=== PATIENT | male | born 1955 | race Caucasian/White ===

== ENCOUNTER 2020-08-14 10:21 | Outpatient (REF) | payer MEDICARE, MEDICAID, SELFPAY ==
--- NOTE | 2020-08-14 | US_ITS ---
EXAMINATION: US RETROPERITONEAL LIMITED (RENAL ONLY) CLINICAL INFORMATION: Renal cyst. COMPARISON: Renal ultrasound 06/18/2020 and 02/28/2018. MRA abdomen 07/02/2016. TECHNIQUE: Real-time imaging of the kidneys. FINDINGS: RIGHT KIDNEY: 11.5 x 5.6 x 5.7 cm (SAG x AP x TRV). The kidney is normal in size, contour, and echogenicity. Renal cortical thickness is normal. No renal calculi or hydronephrosis. Upper pole cyst measures 1.7 x 1.3 x 1.9 cm. This appears simple. This is similar to prior. LEFT KIDNEY: 12.4 x 4.7 x 5.1 cm (SAG x AP x TRV). The kidney is normal in size, contour, and echogenicity. Renal cortical thickness is normal. No hydronephrosis. Multiple cysts are again identified. These have a simple appearance and are similar in size to the prior. The largest is seen at the midpole measuring 2.7 x 1.8 x 2.1 cm. There are also multiple calcifications again noted. Midpole calcification is more prominent than on previous, measuring 1.2 x 0.3 x 0.7 cm. There is also a 0.9 x 0.4 x 0.4 cm calcification. These are likely similar to prior allowing for differences in measurement technique. The prior study showed an upper pole calculus which is not currently seen. US/US renal BI IMPRESSION: Bilateral renal cysts are without significant change from prior. Left renal calcifications are noted. Upper pole calcification seen on the prior study is not currently seen. Remaining mid/lower pole calcifications are similar.
== END 2020-08-14 10:22 | disposition home or self-care (01) ==
LOC: HO.US 10:21
PROVIDERS: PCP Internal Medicine; Visit Provider Urology
DX: N28.1 Cyst of kidney, acquired (principal)
CPT/HCPCS: 76775

== ENCOUNTER 2020-09-29 08:07 | Outpatient (REF) | payer MEDICARE, MEDICAID, SELFPAY ==
[2020-09-29 11:15] LABS: PSA,Total (Free>4and<10) 1.59 ng/mL (0.00-4.00)
== END 2020-09-29 08:08 | disposition home or self-care (01) ==
LOC: HO.10HDL 08:07
PROVIDERS: Visit Provider Urology
DX: N40.1 Benign prostatic hyperplasia with lower urinary tract symptoms (principal)
CPT/HCPCS: 84153

== ENCOUNTER → 2020-10-02 10:25 | Outpatient (BNVA) | payer MEDICARE, MEDICAID, SELFPAY | PROVIDERS: PCP Internal Medicine; Visit Provider Urology | DX: N40.1 Benign prostatic hyperplasia with lower urinary tract symptoms (principal); N28.1 Cyst of kidney, acquired; N20.0 Calculus of kidney | CPT/HCPCS: 99212 ==

== ENCOUNTER → 2020-12-11 14:33 | Outpatient (REF) | payer MEDICARE, MEDICAID, SELFPAY ==
--- NOTE | 2020-12-11 15:00 | CA_ITS ---
Transthoracic Echocardiogram Patient (Last, First, Middle): Tato Wilson, Gender: Male Date of : 1955 Age: 64 Procedure Date: 12/11/2020 Procedure Type: Transthoracic Echocardiogram Location: OP Height: 177.8 cm Weight: 85.28 kg BSA: 2.03 m2 Heart Rate: bpm BP: 120 / 80 mmHg Armature Repairer: EDA Chapman MD: Carlito Morales MD Order Entry Technician: Tulio Sheets MD Symptoms: I77.810 AAA Study Quality: Fair ECG Rhythm: Sinus Conclusions: - 1. Normal LV systolic function with grade 1 diastolic dysfunction 2. Normal cardiac valvular Doppler 3. Mildly dilated ascending aorta at 3.9 cm 4. Normal RV systolic pressure 5. No pericardial effusion Findings Left Ventricle Normal left ventricular size, thickness, and systolic function. The visually estimated ejection fraction is between 60-65%. Spectral Doppler is indicative of an impaired relaxation filling pattern. E/E prime ratio is <8, consistent with normal filling pressures. Evidence suggests grade I (mild) diastolic dysfunction. Right Ventricle Normal right ventricular cavity size and systolic function. Atria Both atria are normal in size. Interatrial shunt cannot be excluded. Aortic Valve Normal aortic valve structure and function. There is no aortic valve stenosis. There is no aortic valve regurgitation. Mitral Valve Normal mitral valve structure and function. There is trace mitral valve regurgitation. There is no mitral valve stenosis. Pulmonic Valve The pulmonic valve was not well visualized. Tricuspid Valve Likely normal tricuspid valve structure and function. There is trace tricuspid valve regurgitation. The right ventricular systolic pressure is normal. The right ventricular systolic pressure is 23 mmHg. Normal right atrial pressure. There is no evidence of pulmonary hypertension. Great Vessels The pulmonary artery was not well visualized. There is mild dilatation of the ascending aorta measuring 3.90 cm. Venous The inferior vena cava is normal in size and collapses greater than 50% with inspiration. Pericardium/Pleural There is no evidence of pericardial effusion. Prior Study Comparison No change compared to prior study dated: 12/11/2019. Measurements 2D Linear Measurements IVSd: 1.15 0.6-0.9/0.6-1.0 cm LVIDd: 3.56 3.9-5.3/4.2-5.9 cm LVIDd Index: 1.75 2.4-3.2/2.2-3.1 cm/m2 LVIDs: 2.59 2.0-3.6 cm LVPWd: 1.08 0.7-1.1 cm Ao Root: 3.90 2.1-3.5 cm LA Diam: 3.00 2.7-3.8/3.0-4.0 cm LAIDs Index: 1.48 1.5-2.3 cm/m2 LV Mass: 154.95 67-162/88-224 g LV Mass Index: 76.33 43-95/49-115 g/m2 LVOT Diam: 2.20 3.0+(-)1.3 cm Mitral Valve MV Pk E: 1.02 MV PK A: 1.25 MV Decel Time: 261.00 E/A: 0.80 E'Lateral: 7.25 E'Medial: 5.71 E/E' Med: 17.90 E/E' Lat: 14.10 PHT: 76.00 MVA PHT: 2.89 Decel Bent: 3.92 Aortic Valve AoV Pk Bud: 1.26 AoV Mn Bud: 0.85 AoV VTI: 0.23 AoV Pk Grad: 6.00 Aov Mn Grad: 3.00 SANIYA Cont.VTI: 3.44 LVOT LVOT Pk Bud: 1.14 LVOT Mn Bud: 0.65 LVOT VTI: 0.21 LVOT Pk Grad: 5.00 LVOT Mn Grad: 2.00 LVOT Diam: 2.20 LVOT Area: 3.80 Diastolic Function MV Pk E: 1.02 MV Pk A: 1.25 E/A: 0.80 E'Medial: 5.71 E/E' Med: 17.90 E' Laterial: 7.25 E/E' Lat: 14.10 Tricuspid Valve TR Pk Bud: 2.25 TR Pk Grad: 20.00 RA Press: 3.00 RVSP: 23.00 Great Vessels Aorta Ao Root-2D: 3.90 2.0-3.7 cm Ao Asc: 3.90 2.1-3.4 cm Ao Arch: 3.80 Updated in Other Vendor System with Status of Final Tulio Sheets MD electronically signed on 12/12/2020 1:05:40 PM with status of Final
== END ==
LOC: HO.CARD 14:33
PROVIDERS: Visit Provider Internal Medicine
DX: I77.810 Thoracic aortic ectasia (principal)
CPT/HCPCS: 93306

== ENCOUNTER → 2020-12-22 12:40 | Outpatient (BNVA) | payer MEDICARE, MEDICAID, SELFPAY | PROVIDERS: PCP Internal Medicine; Visit Provider Internal Medicine | DX: I10 Essential (primary) hypertension (principal); I77.810 Thoracic aortic ectasia | CPT/HCPCS: 93005; 99212 ==

== ENCOUNTER 2021-01-23 08:11 | Outpatient (REF) | payer MEDICARE, MEDICAID, SELFPAY | END 2021-01-23 08:12 | disposition home or self-care (01) | LOC: HO.10HDL 08:11 | PROVIDERS: Visit Provider Internal Medicine Nephrology | DX: Z13.89 Encounter for screening for other disorder (principal) ==

== ENCOUNTER 2021-02-02 08:27 | Outpatient (REF) | payer MEDICARE, MEDICAID, SELFPAY ==
[2021-02-02 10:23] LABS: MANUAL DIFF FLAG NO
[2021-02-02 10:29] LABS: Glucose Urine UA NEG (NEG); Leukocyte Esterase Urine NEG (NEG); Nitrite Urine NEG (NEG); PH 5.5 (5.0-8.0); Urine Blood NEG (NEG); Urine Ketones NEG (NEG); Urine Protein NEG (NEG-TRACE)
[2021-02-02 10:32] LABS: Basophils Absolute Auto 0.1 X10*3/uL (0.0-0.2); Basophils Percent Auto 0.5 % (0-2); Eosinophils Absolute Auto 0.5 X10*3/uL (0.0-0.4); Eosinophils Percent Auto 5.3 % (0-4); Hematocrit 43.1 % (42-52); Hemoglobin 14.5 g/dl (14.0-18.0); Imm Gran Abs Auto 0.03 X10*3/uL (0.00-0.03); Imm Gran Pct Auto 0.3 % (0.0-0.4); Lymphocytes Absolute Auto 2.5 X10*3/uL (1.2-4.9); Lymphocytes Percent Auto 24.1 % (20-40); Mean Corpuscular HGB Conc 33.6 g/dl (31.0-36.0); Mean Corpuscular Hemoglobin 30.1 pg (27.0-33.0); Mean Corpuscular Volume 89.4 fL (80-98); Mean Platelet Volume 11.5 fL (9.4-12.4); Monocytes Absolute Auto 0.5 X10*3/uL (0.1-1.2); Monocytes Percent Auto 5.3 % (2-11); Neutrophils Absolute Auto 6.5 X10*3/uL (2.0-8.3); Neutrophils Percent Auto 64.5 % (45-73); Platelet Count 219 X10*3/uL (160-400); Red Blood Count 4.82 X10*6/uL (4.60-5.80); Red Cell Distribution Width 13.1 % (11.0-16.0); White Blood Count 10.2 X10*3/uL (4.8-10.8)
[2021-02-02 10:50] LABS: Appearance Urine CLEAR; Color Urine YELLOW
[2021-02-02 10:54] LABS: Albumin Level 4.1 g/dL (3.5-5.0); Anion Gap 12 (12-20); Blood Urea Nitrogen 33 mg/dL (9-16); Calcium 9.8 mg/dL (8.4-10.2); Carbon Dioxide 25 mmol/L (22-29); Chloride 102 mmol/L (96-108); Creatinine Urine 84.41 mg/dL; Estimated Glomerular Filt Rate 44; Magnesium 2.1 mg/dL (1.6-2.6); Microalbumin Urine < 5.0 mg/L; Potassium 4.4 mmol/L (3.3-5.1); Sodium 135 mmol/L (135-145); Total Protein Urine Random < 7 mg/dL (<12)
[2021-02-02 11:22] LABS: Vitamin D 25-OH Total 32.9 ng/mL (>30)
[2021-02-02 11:28] LABS: RBC Urine 0 /HPF (0); WBC Urine 0 /HPF (0-4)
[2021-02-02 12:22] LABS: Renal w Reflex Lab Use Only Order verified
[2021-02-02 12:56] LABS: Renal w Reflex-LAB USE ONLY Order Verified
[2021-02-03 17:16] LABS: Calcium (PTHI) 9.7 mg/dL (8.6-10.3); PTHI 27 pg/mL (14-64)
== END 2021-02-02 08:28 | disposition home or self-care (01) ==
LOC: HO.10HDL 08:27
PROVIDERS: Visit Provider Internal Medicine Nephrology
DX: I12.9 Hypertensive chronic kidney disease with stage 1 through stage 4 chronic kidney disease, or unspecified chronic kidney disease (principal); N18.30 Chronic kidney disease, stage 3 unspecified
CPT/HCPCS: 36415; 80051; 81001; 82040; 82043; 82306; 82310; 82565; 83735; 83970; 84100; 84156; 84520; 85025

== ENCOUNTER 2021-09-02 07:50 | Outpatient (REF) | payer MEDICARE, MEDICAID, SELFPAY ==
[2021-09-02 08:40] LABS: Alanine Aminotransferase 32 U/L (0-40); Albumin Level 4.5 g/dL (3.5-5.0); Alkaline Phosphatase 77 U/L (39-117); Anion Gap 13 (12-20); Aspartate Amino Transferase 26 U/L (5-37); Blood Urea Nitrogen 22 mg/dL (9-16); Calcium 9.9 mg/dL (8.4-10.2); Carbon Dioxide 26 mmol/L (22-29); Chloride 103 mmol/L (96-108); Cholesterol 201 mg/dL; Estimated Glomerular Filt Rate 48; Glucose Fasting 97 mg/dL (60-99); HDL Cholesterol 45 mg/dL; LDL Cholesterol Calculated 140 mg/dl; Potassium 4.5 mmol/L (3.3-5.1); Sodium 137 mmol/L (135-145); Total Protein 8.2 g/dL (6.5-8.0); Triglycerides 81 mg/dL
== END 2021-09-02 07:51 | disposition home or self-care (01) ==
LOC: HO.LAB 07:50
PROVIDERS: Visit Provider Internal Medicine
DX: E78.5 Hyperlipidemia, unspecified (principal); I10 Essential (primary) hypertension
CPT/HCPCS: 36415; 80053; 80061

== ENCOUNTER 2021-09-10 14:46 | Outpatient (REF) | payer MEDICARE, MEDICAID, SELFPAY ==
--- NOTE | ~2021-09-10 | US_ITS ---
EXAMINATION: US RETROPERITONEAL LIMITED (RENAL ONLY) CLINICAL INFORMATION: Cyst of kidney, acquired. COMPARISON: Bilateral renal ultrasounds dated 08/14/2020. Renals only ultrasound dated 06/18/2020. TECHNIQUE: Real-time imaging of the kidneys. FINDINGS: RIGHT KIDNEY: 10.8 x 6.1 x 4.9 cm (SAG x AP x TRV). The kidney is normal in size, contour, and echogenicity. Renal cortical thickness is normal. No renal calculi or hydronephrosis. There is an anechoic cyst in the upper pole measuring 1.7 x 1.1 x 1.4 cm. LEFT KIDNEY: 10.2 x 4.6 x 6.4 cm (SAG x AP x TRV). The kidney is normal in size, contour, and echogenicity. Renal cortical thickness is normal. No hydronephrosis. There are anechoic cysts in the upper pole measuring 1.3 x 1.1 x 1.1 cm, 1.9 x 2.0 x 2.3 cm and 1.3 x 1.1 x 1.7 cm. Midpole cyst measures 2.1 x 2.0 x 2.5 cm. Lower pole cysts measure 0.8 x 0.5 x 0.6 cm and 0.6 x 0.4 x 0.5 cm. There are echogenic stones versus calcification in upper pole measuring 0.8 x 0.4 x 1.2 cm, 1.4 x 0.4 cm, 0.5 x 0.1 cm and midpole 0.6 x 0.2 cm. No caliectasis seen. US/US renal BI IMPRESSION: Multiple left renal cysts and a solitary cyst right kidney. Multiple small echogenic foci, question stone versus calcification in the upper and midpole left kidney. There is no caliectasis or hydronephrosis.
== END 2021-09-10 14:47 | disposition home or self-care (01) ==
LOC: HO.US 14:46
PROVIDERS: PCP Internal Medicine; Visit Provider Urology
DX: N28.1 Cyst of kidney, acquired (principal)
CPT/HCPCS: 76775

== ENCOUNTER 2021-11-30 16:23 | Outpatient (REF) | payer MEDICARE, MEDICAID, SELFPAY ==
--- NOTE | ~2021-11-30 | US_ITS ---
EXAMINATION: US RETROPERITONEAL LIMITED (RENAL ONLY) CLINICAL INFORMATION: Cyst of kidney, acquired. COMPARISON: US retroperitoneal limited (renal only) 09/10/2021 and 08/14/2020. TECHNIQUE: Real-time imaging of the kidneys. FINDINGS: RIGHT KIDNEY: 11.0 x 4.7 x 4.9 cm (SAG x AP x TRV). The kidney is normal in size, contour, and echogenicity. Renal cortical thickness is normal. There is a 1.2 x 1.4 x 1.3 cm cyst in the upper pole. No renal calculi or hydronephrosis. LEFT KIDNEY: 11.5 x 5.7 x 4.8 cm (SAG x AP x TRV). The kidney is normal in size, contour, and echogenicity. Renal cortical thickness is normal. There are multiple small cysts, the largest measuring 2.1 x 2.3 x 1.5 cm in the upper pole and 2.1 x 2.1 x 1.6 cm in the mid pole. There are several echogenic densities adjacent to the cysts, question representing milk of calcium cysts or cyst wall calcification. No hydronephrosis. US/US renal BI IMPRESSION: Bilateral renal cysts, left greater than right. Appearance is similar to September 2021 exam.
[2021-11-30 18:29] LABS: PSA,Total (Free>4and<10) 1.03 ng/mL (0.00-4.00)
== END 2021-11-30 16:24 | disposition home or self-care (01) ==
LOC: HO.US 16:23
PROVIDERS: PCP Internal Medicine; Visit Provider Urology
DX: Z12.5 Encounter for screening for malignant neoplasm of prostate (principal); N28.1 Cyst of kidney, acquired; N40.1 Benign prostatic hyperplasia with lower urinary tract symptoms
CPT/HCPCS: 36415; 76775; 84153

== ENCOUNTER → 2021-12-08 08:06 | Outpatient (BNVA) | payer MEDICARE, MEDICAID, SELFPAY | PROVIDERS: PCP Internal Medicine; Visit Provider Urology | DX: N40.1 Benign prostatic hyperplasia with lower urinary tract symptoms (principal); R35.1 Nocturia; N28.1 Cyst of kidney, acquired | CPT/HCPCS: Q3014 ==

== ENCOUNTER → 2021-12-14 08:01 | Outpatient (REF) | payer MEDICARE, MEDICAID, SELFPAY ==
--- NOTE | 2021-12-14 08:06 | CA_ITS ---
Transthoracic Echocardiogram Patient (Last, First, Middle): Tato Wilson R Gender: Male Date of : 1955 Age: 65 Procedure Date: 12/14/2021 Procedure Type: Transthoracic Echocardiogram Location: OP Height: 177.8 cm Weight: 85.73 kg BSA: 2.04 m2 Heart Rate: bpm BP: 115 / 75 mmHg Commercial Loan Underwriter: NAUN Referring MD: Carlito Morales MD Symptoms: I77.810 - Thoracic aortic ectasia Study Quality: Fair ECG Rhythm: Sinus Conclusions: - The left ventricular systolic function is normal. The calculated ejection fraction is 62% by biplane method. - The basal inferior and basal inferoseptal segments are hypokinetic. - No obvious valvular pathology seen on this study. - There is mild dilatation of the sinuses of Valsalva measuring 3.83 cm, mild dilatation of the ascending aorta measuring 4.10 cm, and no dilatation of the aortic arch measuring 3.40 cm. Findings Left Ventricle Normal left ventricular cavity size. There is mildly increased left ventricular wall thickness. The left ventricular systolic function is normal. The calculated ejection fraction is 62% by biplane method. E/E prime ratio is between 8 and 15 consistent with indeterminate filling pressures. Evidence suggests grade I (mild) diastolic dysfunction. Wall Motion Rest Echo Findings The basal inferior and basal inferoseptal segments are hypokinetic. Right Ventricle Normal right ventricular cavity size and systolic function. Atria Both atria are normal in size. Aortic Valve There is a normal trileaflet aortic valve. There is no aortic valve stenosis. There is no aortic valve regurgitation. Mitral Valve There is mild mitral annular calcification. There is trace mitral valve regurgitation. There is no mitral valve stenosis. Pulmonic Valve The pulmonic valve was not well visualized. Tricuspid Valve Normal tricuspid valve structure. There is trace tricuspid valve regurgitation. The pulmonary artery systolic pressure is normal. Great Vessels There is mild dilatation of the sinuses of Valsalva measuring 3.83 cm, mild dilatation of the ascending aorta measuring 4.10 cm, and no dilatation of the aortic arch measuring 3.40 cm. Venous The inferior vena cava is normal in size and collapses greater than 50% with inspiration. Pericardium/Pleural There is no evidence of pericardial effusion. Prior Study Comparison Changes noted compared to prior study dated: 12/11/2020. Slight increase in ascending aortic size. See comment on wall motion. Recommendations, Care & Conclusions No obvious valvular pathology seen on this study. Measurements 2D Linear Measurements IVSd: 1.13 0.6-0.9/0.6-1.0 cm LVIDd: 4.49 3.9-5.3/4.2-5.9 cm LVIDd Index: 2.20 2.4-3.2/2.2-3.1 cm/m2 LVIDs: 3.00 2.0-3.6 cm LVPWd: 1.10 0.7-1.1 cm LA Diam: 3.10 2.7-3.8/3.0-4.0 cm LAIDs Index: 1.52 1.5-2.3 cm/m2 LV Mass: 221.46 67-162/88-224 g LV Mass Index: 108.56 43-95/49-115 g/m2 LVOT Diam: 2.20 3.0+(-)1.3 cm 2D Systolic Function EF 4C: 64.40 >55% EF 2C: 58.90 >55% EF BiP: 62.40 >55% Mitral Valve MV Pk E: 0.97 MV PK A: 1.09 MV Decel Time: 264.00 E/A: 0.90 E'Lateral: 8.49 E'Medial: 5.66 E/E' Med: 17.20 E/E' Lat: 11.50 PHT: 77.00 MVA PHT: 2.86 Decel [place]: 3.68 Aortic Valve AoV Pk Bud: 1.16 AoV Mn Bud: 0.86 AoV VTI: 0.25 AoV Pk Grad: 5.00 Aov Mn Grad: 3.00 SAINYA Cont.VTI: 3.63 LVOT LVOT Pk Bud: 1.09 LVOT Mn Bud: 0.79 LVOT VTI: 0.24 LVOT Pk Grad: 5.00 LVOT Mn Grad: 3.00 LVOT Diam: 2.20 LVOT Area: 3.80 Diastolic Function MV Pk E: 0.97 MV Pk A: 1.09 E/A: 0.90 E'Medial: 5.66 E/E' Med: 17.20 E' Laterial: 8.49 E/E' Lat: 11.50 Right Ventricle TAPSE (mm): 19.40 TVS' Bud: 10.90 Tricuspid Valve TR Pk Bud: 1.84 TR Pk Grad: 14.00 RA Press: 3.00 RVSP: 17.00 Great Vessels Aorta Sinus of Valsalva: 3.83 2.0-3.[address] [place]: 3.43 1.7-3.4 cm Ao Asc: 4.10 2.1-3.4 cm Ao Arch: 3.40 Updated in Other Vendor System with Status of Final Carlito Morales MD electronically signed on 12/14/2021 11:27:45 AM with status of Final
== END ==
LOC: HO.CARD 08:01
PROVIDERS: PCP Internal Medicine; Visit Provider Internal Medicine
DX: I77.810 Thoracic aortic ectasia (principal)
CPT/HCPCS: 93306

== ENCOUNTER → 2021-12-22 12:48 | Outpatient (BNVA) | payer MEDICARE, MEDICAID, SELFPAY | PROVIDERS: PCP Internal Medicine; Referring Provider Internal Medicine; Visit Provider Internal Medicine | DX: I77.810 Thoracic aortic ectasia (principal); I10 Essential (primary) hypertension; R93.1 Abnormal findings on diagnostic imaging of heart and coronary circulation | CPT/HCPCS: 93005; 99212 ==

== ENCOUNTER → 2021-12-28 08:24 | Outpatient (REF) | payer MEDICARE, MEDICAID, SELFPAY ==
--- NOTE | ~2021-12-28 | NM_ITS ---
EXERCISE MYOCARDIAL PERFUSION STUDY INDICATION: Wall motion abnormality with echocardiogram-basal inferior/inferoseptal hypokinesis. Assess for coronary disease/ischemia. TECHNIQUE: The patient was brought in for an exercise perfusion study on 12/28/2021. Patient performed exercise as per [facility] protocol and was injected 30 mCi of sestamibi once target heart rate was achieved. Images were obtained using the SPECT gamma camera interlaced with the gating device. Images were obtained in supine position. Resting perfusion study was performed on 12/29/2021. Patient was administered 30 mCi of sestamibi intravenously at rest. Images were then obtained in supine position. Total DLP 106mGy-cm. Images were processed with the software and compared side to side in short axis, horizontal long axis and vertical long axis views. FINDINGS: Raw images were reviewed. The stress perfusion study showed mildly diminished tracer uptake in the basal to mid inferior septum. There is improvement with CT at admission correction suggestive of diaphragmatic attenuation artifact. Additionally, there is also some bowel uptake in that area which may play a role.. The gated study shows normal LV systolic function with calculated LVEF of 67%. LV cavity is normal in size. The gated study shows normal wall thickening and contraction of segments. Resting study shows mildly diminished tracer uptake in the basal to mid inferior wall. There is improvement with CT attenuation correction. Gating at rest reveals normal wall motion with ejection fraction at 60%. The findings are consistent with mild reversible basal inferoseptal defect, but with improvement during CT attenuation correction. NM/NM cardiolite stress test IMPRESSION: 1. Myocardial perfusion imaging study shows possible mild ischemia in the basal inferoseptal wall. Could also be artifactual. Appears to be a low risk finding. 2. Gated LVEF is 67% during stress and 58% during rest. 3. Transient ischemic dilatation not present. EKG component of the test reported separately.
--- NOTE | 2021-12-28 08:28 | CA_ITS ---
Acquisition Time: 2021-12-28 08:50:45 Total Exercise Time: 00:06:00 Test Indications: ABN ECHO Medications: SEE CHART Protocol: JADE Max HR: 139 BPM 90% of Pred: 153 BPM Max BP: 150/082 mmHG Max Work Load: 7.0 METS Exercise stress test with exercise 6 min of Jade protocol, with mild sob, no chest discomfort, with isolated PACs, with normotensive response to exercise, without EKG changes meeting criteria for ischemia, with downsloping ST V6 only which is nonspecific. Nuclear images pending. Test reviewed with Dr Morales. Referred By: Carlito Morales Overread By: NNEKA HAWTHORNE
== END ==
LOC: HO.CARD 08:24
PROVIDERS: Visit Provider Internal Medicine
DX: I25.10 Atherosclerotic heart disease of native coronary artery without angina pectoris (principal)
CPT/HCPCS: 78452; 93017; A9500

== ENCOUNTER 2022-01-20 07:52 | Outpatient (REF) | payer MEDICARE, MEDICAID, SELFPAY ==
[2022-01-20 09:25] LABS: Alanine Aminotransferase 28 U/L (0-40); Albumin Level 4.2 g/dL (3.5-5.0); Alkaline Phosphatase 78 U/L (39-117); Anion Gap 12 (12-20); Aspartate Amino Transferase 21 U/L (5-37); Bilirubin Total 0.5 mg/dL (0.0-1.0); Blood Urea Nitrogen 22 mg/dL (9-16); Calcium 9.9 mg/dL (8.4-10.2); Carbon Dioxide 26 mmol/L (22-29); Chloride 104 mmol/L (96-108); Cholesterol 187 mg/dL; Estimated Glomerular Filt Rate 55; Glucose Fasting 115 mg/dL (60-99); HDL Cholesterol 43 mg/dL; LDL Cholesterol Calculated 133 mg/dl; Potassium 4.6 mmol/L (3.3-5.1); Sodium 137 mmol/L (135-145); Total Protein 7.6 g/dL (6.5-8.0); Triglycerides 55 mg/dL
== END 2022-01-20 07:53 | disposition home or self-care (01) ==
LOC: HO.LAB 07:52
PROVIDERS: PCP Internal Medicine; Visit Provider Internal Medicine
DX: I77.810 Thoracic aortic ectasia (principal); I25.10 Atherosclerotic heart disease of native coronary artery without angina pectoris; I10 Essential (primary) hypertension; N18.32 Chronic kidney disease, stage 3b; E55.9 Vitamin D deficiency, unspecified; E78.5 Hyperlipidemia, unspecified
CPT/HCPCS: 36415; 80053; 80061; 82306; 99212

== ENCOUNTER 2022-04-08 09:15 | Outpatient (REF) | payer MEDICARE, MEDICAID, SELFPAY ==
[2022-04-08 09:39] LABS: MANUAL DIFF FLAG NO
[2022-04-08 10:29] LABS: Basophils Absolute Auto 0.1 X10*3/uL (0.0-0.2); Basophils Percent Auto 0.7 % (0-2); Eosinophils Absolute Auto 0.7 X10*3/uL (0.0-0.4); Eosinophils Percent Auto 6.4 % (0-4); Hemoglobin 14.3 g/dl (14.0-18.0); Imm Gran Abs Auto 0.04 X10*3/uL (0.00-0.03); Imm Gran Pct Auto 0.4 % (0.0-0.4); Lymphocytes Absolute Auto 2.4 X10*3/uL (1.2-4.9); Mean Corpuscular HGB Conc 33.3 g/dl (31.0-36.0); Mean Corpuscular Hemoglobin 29.9 pg (27.0-33.0); Mean Corpuscular Volume 89.8 fL (80.0-98.0); Mean Platelet Volume 11.6 fL (9.4-12.4); Monocytes Absolute Auto 0.8 X10*3/uL (0.1-1.2); Monocytes Percent Auto 7.5 % (2-11); Neutrophils Absolute Auto 6.7 x10*3/uL (2.0-8.3); Platelet Count 211 X10*3/uL (160-400); Red Blood Count 4.79 X10*6/uL (4.60-5.80); Red Cell Distribution Width 13.4 % (11.0-16.0); White Blood Count 10.7 X10*3/uL (4.8-10.8)
[2022-04-08 10:31] LABS: Appearance Urine HAZY; Color Urine YELLOW; Glucose Urine UA NEG (NEG); Leukocyte Esterase Urine NEG (NEG); Nitrite Urine NEG (NEG); Specific Gravity - Urine <= 1.005 (1.005-1.025); Urine Blood NEG (NEG); Urine Ketones NEG (NEG); Urine Protein NEG (NEG-TRACE)
[2022-04-08 11:07] LABS: Albumin Level 4.4 g/dL (3.5-5.0); Anion Gap 13 (12-20); Blood Urea Nitrogen 21 mg/dL (9-16); Calcium 9.6 mg/dL (8.4-10.2); Carbon Dioxide 26 mmol/L (22-29); Chloride 101 mmol/L (96-108); Estimated Glomerular Filt Rate 46; Magnesium 2.2 mg/dL (1.6-2.6); Phosphorus 3.5 mg/dL (2.7-4.5); Potassium 4.5 mmol/L (3.3-5.1); Sodium 135 mmol/L (135-145)
[2022-04-08 11:11] LABS: Creatinine Urine 61.47 mg/dL; Microalbumin Urine < 5.0 mg/L; Total Protein Urine Random < 7 mg/dL (<12)
[2022-04-09 13:08] LABS: Calcium (PTHI) 9.9 mg/dL (8.6-10.3); PTHI 31 pg/mL (16-77)
== END 2022-04-08 09:16 | disposition home or self-care (01) ==
LOC: HO.LAB 09:15
PROVIDERS: PCP Internal Medicine; Visit Provider Internal Medicine Nephrology
DX: I12.9 Hypertensive chronic kidney disease with stage 1 through stage 4 chronic kidney disease, or unspecified chronic kidney disease (principal); N18.31 Chronic kidney disease, stage 3a; N25.0 Renal osteodystrophy
CPT/HCPCS: 36415; 80051; 81003; 82040; 82043; 82310; 82565; 83735; 83970; 84100; 84156; 84520; 85025; 87086

== ENCOUNTER 2022-04-14 08:00 | Outpatient (RCR) | payer MEDICARE, MEDICAID, SELFPAY | END 2022-08-30 14:14 | disposition home or self-care (01) | LOC: HO.PT 08:00 | PROVIDERS: PCP Internal Medicine; Visit Provider Internal Medicine Rheumatology | DX: M17.0 Bilateral primary osteoarthritis of knee (principal) | CPT/HCPCS: 97110; 97162 ==

== ENCOUNTER 2022-06-04 07:37 | Outpatient (REF) | payer MEDICARE, MEDICAID, SELFPAY ==
[2022-06-04 09:07] LABS: Alanine Aminotransferase 32 U/L (0-40); Albumin Level 4.4 g/dL (3.5-5.0); Alkaline Phosphatase 68 U/L (39-117); Anion Gap 14 (12-20); Aspartate Amino Transferase 22 U/L (5-37); Blood Urea Nitrogen 24 mg/dL (9-16); Calcium 9.6 mg/dL (8.4-10.2); Carbon Dioxide 25 mmol/L (22-29); Chloride 102 mmol/L (96-108); Cholesterol 185 mg/dL; Estimated Glomerular Filt Rate 43; Glucose Fasting 100 mg/dL (60-99); HDL Cholesterol 41 mg/dL; LDL Cholesterol Calculated 127 mg/dl; Potassium 4.4 mmol/L (3.3-5.1); Sodium 137 mmol/L (135-145); Total Protein 7.8 g/dL (6.5-8.0); Triglycerides 89 mg/dL
== END 2022-06-04 07:38 | disposition home or self-care (01) ==
LOC: HO.LAB 07:37
PROVIDERS: PCP Internal Medicine; Visit Provider Internal Medicine
DX: I10 Essential (primary) hypertension (principal); E78.5 Hyperlipidemia, unspecified
CPT/HCPCS: 36415; 80053; 80061

== ENCOUNTER 2022-06-30 13:59 | Outpatient (REF) | payer MEDICARE, MEDICAID, SELFPAY ==
--- NOTE | ~2022-06-30 | XR_ITS ---
EXAMINATION: XR CHEST CLINICAL INFORMATION: Shortness of breath COMPARISON: Previous chest x-ray February 2016 TECHNIQUE: 2 views of the chest were obtained. FINDINGS: The cardiac and mediastinal contours are stable. There is slight elevation of the right hemidiaphragm similar to previous exam. The lungs are clear. There is no pleural effusion or pneumothorax. There are degenerative changes of the spine. XR/XR chest 2V IMPRESSION: No evidence for acute disease in the chest.
== END 2022-06-30 14:00 | disposition home or self-care (01) ==
LOC: HO.XRAY 13:59
PROVIDERS: PCP Internal Medicine; Visit Provider Internal Medicine
DX: R06.02 Shortness of breath (principal)
CPT/HCPCS: 71046

== ENCOUNTER 2022-08-19 08:07 | Outpatient (REF) | payer MEDICARE, MEDICAID, SELFPAY ==
[2022-08-19 09:22] LABS: Alanine Aminotransferase 29 U/L (0-40); Albumin Level 4.2 g/dL (3.5-5.0); Alkaline Phosphatase 79 U/L (39-117); Anion Gap 12 (12-20); Aspartate Amino Transferase 19 U/L (5-37); Bilirubin Total 0.9 mg/dL (0.0-1.0); Blood Urea Nitrogen 23 mg/dL (9-16); Calcium 9.8 mg/dL (8.4-10.2); Carbon Dioxide 28 mmol/L (22-29); Chloride 103 mmol/L (96-108); Cholesterol 171 mg/dL; Estimated Glomerular Filt Rate 47; Glucose Fasting 106 mg/dL (60-99); HDL Cholesterol 47 mg/dL; LDL Cholesterol Calculated 106 mg/dl; Potassium 4.7 mmol/L (3.3-5.1); Sodium 138 mmol/L (135-145); Total Protein 7.4 g/dL (6.5-8.0); Triglycerides 90 mg/dL
== END 2022-08-19 08:08 | disposition home or self-care (01) ==
LOC: HO.LAB 08:07
PROVIDERS: PCP Internal Medicine; Visit Provider Internal Medicine
DX: I12.9 Hypertensive chronic kidney disease with stage 1 through stage 4 chronic kidney disease, or unspecified chronic kidney disease (principal); N18.32 Chronic kidney disease, stage 3b
CPT/HCPCS: 36415; 80053; 80061

== ENCOUNTER → 2022-09-15 14:47 | Outpatient (BNVA) | payer MEDICARE, MEDICAID, SELFPAY | PROVIDERS: PCP Internal Medicine; Referring Provider Internal Medicine; Visit Provider Internal Medicine | DX: I25.10 Atherosclerotic heart disease of native coronary artery without angina pectoris (principal); I77.810 Thoracic aortic ectasia; I10 Essential (primary) hypertension | CPT/HCPCS: 99212 ==

== ENCOUNTER 2023-03-22 08:26 | Outpatient (REF) | payer MEDICARE, MEDICAID, SELFPAY ==
--- NOTE | ~2023-03-22 | US_ITS ---
EXAMINATION: US RETROPERITONEAL LIMITED (RENAL ONLY) CLINICAL INFORMATION: Cyst of kidney, acquired. COMPARISON: Renal ultrasound 11/30/2021 and 09/10/2021. MRA abdomen 07/02/2016. TECHNIQUE: Real-time imaging of the kidneys. FINDINGS: RIGHT KIDNEY: 11.2 x 5.1 x 6.2 cm (SAG x AP x TRV). The kidney is normal in size, contour, and echogenicity. Renal cortical thickness is normal. No hydronephrosis. Benign-appearing renal cysts measuring up to 1.8 cm, no follow-up imaging recommended. 4 mm nonobstructing lower pole renal stone. LEFT KIDNEY: 12.4 x 5.0 x 4.2 cm (SAG x AP x TRV). The kidney is normal in size, contour, and echogenicity. Renal cortical thickness is normal. No renal calculi or hydronephrosis. Likely benign renal cysts measuring up to 2.5 cm cyst with mural calcification, no follow-up imaging recommended, previously measuring up to 2.3 cm. US/US renal BI IMPRESSION: 1. 4 mm nonobstructing right lower pole renal stone. 2. Likely benign renal cysts measuring up to 2.5 cm cyst with mural calcification, no follow-up imaging recommended.
== END 2023-03-22 08:27 | disposition home or self-care (01) ==
LOC: HO.US 08:26
PROVIDERS: PCP Internal Medicine; Visit Provider Urology
DX: N28.1 Cyst of kidney, acquired (principal)
CPT/HCPCS: 76775

== ENCOUNTER 2023-04-02 09:25 | Outpatient (REF) | payer MEDICARE, MEDICAID, SELFPAY ==
[2023-04-02 10:47] LABS: Albumin Level 4.1 g/dL (3.5-5.0); Anion Gap 14 (12-20); Blood Urea Nitrogen 19 mg/dL (9-16); Calcium 9.6 mg/dL (8.4-10.2); Carbon Dioxide 22 mmol/L (22-29); Chloride 105 mmol/L (96-108); Estimated Glomerular Filt Rate 43; Phosphorus 3.3 mg/dL (2.7-4.5); Potassium 4.5 mmol/L (3.3-5.1); Sodium 136 mmol/L (135-145)
[2023-04-02 11:04] LABS: Vitamin D 25-OH Total 37.1 ng/mL (>30)
== END 2023-04-02 09:26 | disposition home or self-care (01) ==
LOC: HO.LAB 09:25
PROVIDERS: PCP Internal Medicine; Visit Provider Internal Medicine Nephrology
DX: I12.9 Hypertensive chronic kidney disease with stage 1 through stage 4 chronic kidney disease, or unspecified chronic kidney disease (principal); N18.31 Chronic kidney disease, stage 3a; N25.0 Renal osteodystrophy; R82.90 Unspecified abnormal findings in urine
CPT/HCPCS: 36415; 80051; 81003; 82040; 82043; 82306; 82310; 82565; 83735; 83970; 84100; 84156; 84520; 85025; 87086

== ENCOUNTER 2023-04-18 07:49 | Outpatient (AMB) | payer MEDICARE, MEDICAID, SELFPAY ==
--- NOTE | 2023-04-18 07:52 | A.OFFPC_ITS ---
Vital Signs 04/18/23 07:56 Height 5 ft 10 in Weight 188 lb BMI 27.0 BP 118/78 Blood Pressure Location Lt brachial Position Sitting Intake Visit Reasons: bp Intake Note: Patient here for a follow up BP County Extension Agent Required: No Accompanied by: Self / Same As Patient Allergies Tetanus Vaccines and Toxoid [TETANUS VACCINES & TOXOID] Allergy (Severe, Verified 04/18/23 08:03) SWELLING rosuvastatin [From Crestor] Adverse Reaction (Intermediate, Verified 04/18/23 08:03) body aches Medication List - Last Reconciled 04/18/23 by Mel Harris MD aspirin 81 mg PO DAILY doxazosin 8 mg PO DAILY furosemide 20 mg PO DAILY lisinopril 10 mg PO DAILY verapamil ER 240 mg PO DAILY Tobacco use date assessed: 12/06/22 Fall risk assessment: No Falls in past year Last assessed Fall Risk: 04/18/23 Dental Screening Dental Screen Date: 04/18/23 Did you have a dental visit in the last 12 months?: No Did you have a dental problem in the last 6 months where you did not have access to dental care?: No Was dental information given to patient?: Yes HPI HPI Comments History of Present Illness Details This is a 67-year-old male with hypertension, chronic kidney disease stage 3 and renal stone that comes today complaining of right shoulder pain and right knee pain that has been present for over 4 months. Has full active range of motion. Denies previous trauma. Blood pressure stable with medications. GFR slightly worsened from 47-43 and this is follow by Nephrology. Has renal stones follow by Urology. Denies any chest pain or shortness of breath. Alone in the room. [facility] Medical History Anxiety Ascending aorta dilatation BPH loc w urin obs/LUTS CKD (chronic kidney disease) stage 3, GFR 30-59 ml/min Elevated blood pressure reading Essential hypertension Hypospadias, unspecified Left anterior knee pain Left knee pain Meatal stenosis Other chronic pain Renal cyst Renal stone Right anterior knee pain Surgical History Anal fistula History of inguinal hernia repair Family History Father No problems noted. Mother Hypertension Stroke Maternal Grandmother Diabetes Brother Pancreatic cancer Maternal Grandmother Lung cancer Maternal Grandfather Lung cancer Social History Housing: Apartment Alcohol intake: current Alcohol intake frequency: a few times a month Alcohol type: beer Patient Tobacco Use Status: Never used Tobacco e-Cigarette/Vaping Use: Never Used Second Hand Smoke Exposure: No service: No Current occupational status: disabled Cognitive needs: No Hearing needs: No Vision needs: No Questionnaire PHQ-9 Over the last 2 weeks, how often have you been bothered by any of the following problems? 1. Little interest or pleasure in doing things: not at all 2. Feeling down, depressed, or hopeless: not at all 3. Trouble falling or staying asleep, or sleeping too much: not at all 4. Feeling tired or having little energy: not at all 5. Poor appetite or overeating: not at all 6. Feeling bad about yourself - or that you are a failure or have let yourself or your family down: not at all 7. Trouble concentrating on things, such as reading the newspaper or watching television: not at all 8. Moving or speaking so slowly that other people could have noticed. Or the opposite - being so fidgety or restless that you have been moving around a lot more than usual: not at all 9. Thoughts that you would be better off or of hurting yourself in some way: not at all Total score: 0 Depression Screening Interpretation: Negative 26652 - PHQ-9 Billing: Yes Source: Developed by Drs. Juarez Rosales, Suzie Saldivar, Lamont Livingston and colleagues, with an educational zehra from [employer]. Thrive Questionnaire Date Thrive assessed: 04/18/23 I am a: Patient What is your living situation today?: I have a steady place to live Within the past 12 months, did the food you bought not last and you didn't have the money to get more?: Never true Within the past 12 months, did you worry whether your food would run out before you got money to buy more?: Never true Do you have trouble paying for medicines?: No Do you have trouble getting transportation to medical appointments?: No Do you have trouble paying your heating and electricity bill?: No Do you have trouble taking care of your child, family member or friend?: No Do you have trouble with day-to-day activities such as bathing, preparing meals, shopping, managing finances, etc.?: No Are you currently unemployed and looking for a job?: No Are you interested in more education?: No Please select the resources that you would like help with: None Currently or been in a relationship where the following occur: no concerns reported AUDIT C Alcohol Use Questionnaire (AUDIT-C) 1. How often do you have a drink containing alcohol?: Monthly or less 2. How many drinks containing alcohol do you have on a typical day when you are drinking?: 1 or 2 3. How often do you have six or more drinks on one occasion?: Never Total Score: 1 Score Reviewed/Action Taken: No TRI-7 AMB Questionnaire TRI-7 Date TRI - 7 assessed: 04/18/23 Feeling nervous, anxious, or on edge: 0 = Not at all Not being able to stop or control worryin = Not at all Worrying too much about different things: 0 = Not at all Trouble relaxin = Not at all Being so restless that it is hard to sit still: 0 = Not at all Becoming easily annoyed or irritable: 0 = Not at all Feeling afraid as if something awful might happen: 0 = Not at all Total TRI-7 score (0-4 normal; 5-9 mild; 10-14 moderate; 15-21 severe): 0 Source: Developed by Drs. Juarez Rosales, Suzie Saldivar, Lamont Livingston and colleagues, with an educational zehra from [employer]. TRI-7 Assessment Billing TRI-7 Assessment Tool: TRI-7 Assessment 62728 Review of Systems Const All systems reviewed & are unremarkable except as noted in HPI and below Eyes Reports no additional complaints, Denies change in vision and Denies other visual disturbances Card Denies chest pain at rest, Denies chest pain with activity, Denies edema, Denies irregular heart rhythm, Denies claudication, Denies dyspnea, Denies dyspnea on exertion, Denies orthopnea, Denies paroxysmal nocturnal dyspnea and Denies slow heart rate Resp Denies cough, Denies dyspnea and Denies dyspnea on exertion GI Denies abdominal pain, Denies change in bowel habits, Denies excessive flatus, Denies nausea and Denies vomiting Denies urinary hesitancy, Denies urinary incontinence and Denies urinary urgency Musc Denies abnormal gait, Denies atrophy, Denies deformity, Reports arthralgias and Denies limited range of motion Skin/Breast Denies bleeding lesions, Denies changing lesions and Denies rash Neuro Denies abnormal gait and Denies lack of coordination Physical exam (Primary Care) Vital Signs: Last Vital Signs BP 118/78 04/18/23 07:56 BMI result Body Mass Index 27.0 Tobacco/Smoking Status: Tobacco use Status Tobacco use date assessed 12/06/22 04/18/23 07:56 Patient Tobacco Use Status Never used Tobacco 04/18/23 07:56 e-Cigarette/Vaping Use Never Used 04/18/23 07:56 PHQ-9: PHQ-9 Score PHQ-9: Total score 0 04/18/23 07:56 Depression Screening Interpretation: Negative Thrive Assessment: Date of Thrive Assessment Date Thrive assessed 04/18/23 04/18/23 07:56 Currently or been in a relationship where the following occur: no concerns reported Eyes General: appearance normal, both eyes and all related structures Eyelids: Yes eyelids normal Conjunctivae: conjunctivae normal Neck Neck: Yes normal visual inspection and Yes supple Resp Effort & Inspection: normal respiratory effort Auscultation: clear to auscultation bilaterally Cardio Jugular venous distension: no JVD Rate: regular rate Rhythm: regular rhythm Heart sounds: S1 normal heart sound present and S2 normal heart sound present Extrem General: Yes full ROM Right upper extremity: shoulder/upper arm Details: tenderness Assessment and Plan Assessment & Plan (1) Essential hypertension: Code(s): I10 - Essential (primary) hypertension Plan: Continue lisinopril and verapamil. Pressure goal is equal or less than 130/80. (2) CKD (chronic kidney disease) stage 3, GFR 30-59 ml/min: Code(s): N18.30 - Chronic kidney disease, stage 3 unspecified Qualifiers: Chronic kidney disease stage 3 subtype: stage 3b (GFR 30-44) Qualified Code(s): N18.32 - Chronic kidney disease, stage 3b Plan: Avoid NSAIDs. Follow-up with nephrology. Keep blood pressure within goal. (3) Right shoulder pain: Code(s): M25.511 - Pain in right shoulder Plan: X-ray ordered (4) Right knee pain: Code(s): M25.561 - Pain in right knee Plan: X-ray ordered (5) Renal stone: Code(s): N20.0 - Calculus of kidney Plan: Follow-up with Urology Orders: Orders Comprehensive [place]. Panel Fast 4 Months R73.02 - Impaired glucose tolerance (oral) Lipid Panel 4 Months E78.5 - Hyperlipidemia, unspecified XR shoulder RT min 2V Today M25.511 - Pain in right shoulder XR knee RT 2V Today M25.561 - Pain in right knee Referrals Orthopedics Referral M25.511 - Pain in right shoulder, M25.561 - Pain in right knee Medications: New diclofenac sodium 1% apply to single elbow, wrist or hand; for hand includes palm/fingers/back of hand 2 grams topical QID 30 days PRN 100 grams 0RF pain Coding Level of Care Code Est Pt Level 4 (58022) Diagnoses Essential hypertension I10 CKD (chronic kidney disease) stage 3, GFR 30-59 ml/min N18.32 Chronic kidney disease stage 3 subtype: stage 3b (GFR 30-44) Right shoulder pain M25.511 Right knee pain M25.561 Renal stone N20.0 Additional Codes TRI-7 Assessment Billing - TRI-7 Assessment Tool: TRI-7 Assessment 21684 ([id number]) Time Spent (min) 21
[2023-04-18 07:56] VITALS: BP 118/78; BMI 27.0
== END 2023-04-18 08:17 | disposition home or self-care (01) ==
PROVIDERS: Visit Provider Internal Medicine
DX: I12.9 Hypertensive chronic kidney disease with stage 1 through stage 4 chronic kidney disease, or unspecified chronic kidney disease (principal); N18.32 Chronic kidney disease, stage 3b; M25.511 Pain in right shoulder; M25.561 Pain in right knee; N20.0 Calculus of kidney
CPT/HCPCS: 99214

== ENCOUNTER 2023-04-18 08:21 | Outpatient (REF) | payer MEDICARE, MEDICAID, SELFPAY ==
--- NOTE | ~2023-04-18 | XR_ITS ---
EXAMINATION: XR KNEE, RIGHT CLINICAL INFORMATION: Pain in right knee COMPARISON: 06/30/2017 TECHNIQUE: Two views of the right knee. FINDINGS: No fracture or dislocation. Small suprapatellar joint effusion. Mild tricompartmental degenerative change with bony spurring. Tibial spine spurring. Soft tissues unremarkable. XR/XR knee RT 2V IMPRESSION: Mild degenerative change in the right knee. Small suprapatellar joint effusion.
--- NOTE | ~2023-04-18 | XR_ITS ---
EXAMINATION: XR SHOULDER, RIGHT CLINICAL INFORMATION: Pain in right shoulder COMPARISON: None available. TECHNIQUE: Three views of the right shoulder. FINDINGS: No fracture or dislocation. There is mild joint space narrowing in both the acromioclavicular joint and glenohumeral joints. No abnormal calcifications. Soft tissues unremarkable. Visualized right lung is clear. XR/XR shoulder RT min 2V IMPRESSION: Mild degenerative change in the right shoulder.
== END 2023-04-18 08:22 | disposition home or self-care (01) ==
LOC: HO.XRAY 08:21
PROVIDERS: PCP Internal Medicine; Visit Provider Internal Medicine
DX: M25.511 Pain in right shoulder (principal); M25.561 Pain in right knee
CPT/HCPCS: 73030; 73560

== ENCOUNTER → 2023-05-03 13:30 | Outpatient (REF) | payer MEDICARE, MEDICAID, SELFPAY ==
--- NOTE | 2023-05-03 13:32 | CA_ITS ---
Transthoracic Echocardiogram Patient (Last, First, Middle): Tato Wilson R Gender: Male Date of : 1955 Age: 67 Procedure Date: 05/03/2023 Procedure Type: Transthoracic Echocardiogram Location: OP Height: 208.28 cm Weight: 82.56 kg BSA: 2.25 m2 Heart Rate: 65 bpm BP: 116 / 71 mmHg Government Sales Manager: NAUN Referring MD: Carlito Morales MD Symptoms: I77.810 - Thoracic aortic ectasia Study Quality: Adequate ECG Rhythm: Sinus Conclusions: - The left ventricular systolic function is normal. The calculated ejection fraction is 63% by biplane method. - The basal inferior and basal inferolateral segments are hypokinetic. - No obvious valvular pathology seen on this study. - There is mild dilatation of the ascending aorta measuring 4.10 cm. - Small plaque is seen in the sino tubular ridge. Findings Left Ventricle Normal left ventricular cavity size. There is mildly increased left ventricular wall thickness. The left ventricular systolic function is normal. The calculated ejection fraction is 63% by biplane method. Evidence suggests grade I (mild) diastolic dysfunction. Wall Motion Rest Echo Findings The basal inferior and basal inferolateral segments are hypokinetic. Right Ventricle Normal right ventricular cavity size and systolic function. Atria Both atria are normal in size. Aortic Valve There is a normal trileaflet aortic valve. There is no aortic valve stenosis. There is no aortic valve regurgitation. Mitral Valve The mitral valve appears normal. There is no mitral valve regurgitation. There is no mitral valve stenosis. Pulmonic Valve The pulmonic valve is likely normal. Tricuspid Valve Normal tricuspid valve structure. There is trace tricuspid valve regurgitation. There is no evidence of pulmonary hypertension. Great Vessels There is mild dilatation of the ascending aorta measuring 4.10 cm. Small plaque is seen in the sino tubular ridge. Venous The inferior vena cava is normal in size and collapses greater than 50% with inspiration. Pericardium/Pleural There is no evidence of pericardial effusion. Prior Study Comparison No significant change compared to prior study dated: 12/14/2021. Recommendations, Care & Conclusions No obvious valvular pathology seen on this study. Measurements 2D Linear Measurements IVSd: 1.22 0.6-0.9/0.6-1.0 cm LVIDd: 4.60 3.9-5.3/4.2-5.9 cm LVIDd Index: 2.04 2.4-3.2/2.2-3.1 cm/m2 LVIDs: 2.90 2.0-3.6 cm LVPWd: 1.23 0.7-1.1 cm LA Diam: 3.70 2.7-3.8/3.0-4.0 cm LAIDs Index: 1.64 1.5-2.3 cm/m2 LV Mass: 263.19 67-162/88-224 g LV Mass Index: 116.97 43-95/49-115 g/m2 LVOT Diam: 2.20 3.0+(-)1.3 cm 2D Systolic Function EF 4C: 62.30 >55% EF 2C: 64.00 >55% EF BiP: 62.80 >55% Mitral Valve MV Pk E: 0.77 MV PK A: 1.13 MV Decel Time: 292.00 E/A: 0.70 E'Lateral: 9.46 E'Medial: 6.64 E/E' Med: 11.50 E/E' Lat: 8.10 PHT: 86.00 MVA PHT: 2.56 Decel Sutton: 2.62 Aortic Valve AoV Pk Bud: 1.34 AoV Mn Bud: 0.88 AoV VTI: 0.27 AoV Pk Grad: 7.00 Aov Mn Grad: 3.00 SANIYA Cont.VTI: 3.20 LVOT LVOT Pk Bud: 1.21 LVOT Mn Bud: 0.77 LVOT VTI: 0.23 LVOT Pk Grad: 6.00 LVOT Mn Grad: 3.00 LVOT Diam: 2.20 LVOT Area: 3.80 Diastolic Function MV Pk E: 0.77 MV Pk A: 1.13 E/A: 0.70 E'Medial: 6.64 E/E' Med: 11.50 E' Laterial: 9.46 E/E' Lat: 8.10 Right Ventricle TAPSE (mm): 22.10 TVS' Bud: 14.80 Tricuspid Valve TR Pk Bud: 1.82 TR Pk Grad: 13.00 RA Press: 3.00 RVSP: 16.00 Great Vessels Aorta Sinus of Valsalva: 3.93 2.0-3.[address] [place]: 2.85 1.7-3.4 cm Ao Asc: 4.10 2.1-3.4 cm Updated in Other Vendor System with Status of Final Carlito Morales MD electronically signed on 05/05/2023 4:16:49 PM with status of Final
== END ==
LOC: HO.CARD 13:30
PROVIDERS: PCP Internal Medicine; Visit Provider Internal Medicine
DX: I77.810 Thoracic aortic ectasia (principal)
CPT/HCPCS: 93306

== ENCOUNTER → 2023-05-03 13:32 | Outpatient (BNV) | payer MEDICARE, MEDICAID, SELFPAY | PROVIDERS: PCP Internal Medicine; Visit Provider Internal Medicine | DX: I25.10 Atherosclerotic heart disease of native coronary artery without angina pectoris (principal) | CPT/HCPCS: 93306 ==

== ENCOUNTER 2023-05-10 13:24 | Outpatient (AMB) | payer MEDICARE, MEDICAID, SELFPAY ==
--- NOTE | 2023-05-10 13:45 | MHC.OFFVIS ---
Intake Intake Visit Reasons: 1 Year US(set) Intake Note: Patient is present for Follow Up Ultrasound/PVR Urology Med: Doxazosin, Antibiotic Allergy: NONE Blood Thinner: Aspirin Pharmacy: [facility] PVR: 0ml Allergies Tetanus Vaccines and Toxoid [TETANUS VACCINES & TOXOID] Allergy (Severe, Verified 05/10/23 13:47) SWELLING rosuvastatin [From Crestor] Adverse Reaction (Intermediate, Verified 05/10/23 13:47) body aches Medication List - Last Reconciled 05/10/23 by Yobani Martin MD aspirin 81 mg PO DAILY diclofenac sodium 1% 2 grams topical QID PRN 30 days doxazosin 8 mg PO DAILY furosemide 20 mg PO DAILY lisinopril 10 mg PO DAILY verapamil ER 240 mg PO DAILY HPI HPI Comments History of Present Illness Details Tato is a pleasant male. Tamazight speaker. He is a patient of Dr. Harris. He is seen for the following urologic conditions - lower urinary tract symptoms - renal cyst Tamazight translation provided in office by qualified medical office professional instructor Stable bladder emptying 1 year follow-up No need for further ultrasound Lower urinary tract symptoms Underwent laser prostate 2019 Continues to do well with bladder emptying Urinary parameters nocturia x1 Doxazosin listed is medication but patient denies he is taking Continue yearly follow-up Renal cysts Stable Bilateral Imaging - 11/24 2 cm renal cyst bilateral - 03/25 bilateral stable 2.5 cm cyst. Radiology recommend no further follow-up. [facility] Medical History Anxiety Ascending aorta dilatation BPH loc w urin obs/LUTS CKD (chronic kidney disease) stage 3, GFR 30-59 ml/min Elevated blood pressure reading Essential hypertension Hypospadias, unspecified Left anterior knee pain Left knee pain Meatal stenosis Other chronic pain Renal cyst Renal stone Right anterior knee pain Surgical History Anal fistula History of inguinal hernia repair Family History Father No problems noted. Mother Hypertension Stroke Maternal Grandmother Diabetes Brother Pancreatic cancer Maternal Grandmother Lung cancer Maternal Grandfather Lung cancer Social History Housing: Apartment Alcohol intake: current Alcohol intake frequency: a few times a month Alcohol type: beer Patient Tobacco Use Status: Never used Tobacco e-Cigarette/Vaping Use: Never Used Second Hand Smoke Exposure: No service: No Current occupational status: disabled Cognitive needs: No Hearing needs: No Vision needs: No Review of Systems Const Denies chills and Denies fever(s) Card Reports no additional complaints and Denies syncope Resp Denies cough GI Denies abdominal pain and Denies heartburn Reports as per HPI and Denies change in libido Neuro Denies syncope Psych Denies change in libido Endo Denies change in libido Physical Exam Const General: cooperative, healthy appearing, comfortable and no acute distress Orientation/consciousness: patient oriented x3 HEENT Face and sinus: Yes normal facial exam Mouth: moist mucous membranes Neck Neck: Yes normal visual inspection, Yes full ROM and Yes trachea midline Chest Chest palpation & inspection: normal inspection of the chest Resp Effort & Inspection: normal respiratory effort, able to speak in complete sentences and no respiratory distress GI Inspection: Yes normal to inspection Back/Spine/Pelvis Cervical Spine: normal cervical lordosis Thoracic/Lumbar Spine: thoracic and lumbar spine normal to inspection Skin General skin exam: no rashes or lesions noted Neuro General: patient oriented x3, gait normal, tone normal and moves all extremities Extrem General: Yes normal to inspection and Yes capillary refill normal Office Procedures Post Void Residual Post Residual Void Post Void Residual (PVR): 0 [id number] Void Residual by ultrasound Results AMB Urinalysis, Automated UA Leukoctes 0 Goran/uL Last Edit by SADE Solis on 05/10/23 13:51 UA Nitrite Negative Last Edit by SADE Solis on 05/10/23 13:51 UA Urobilinogen 0.2 mg/dL Last Edit by SADE Solis on 05/10/23 13:51 UA Protein 0 mg/dL Last Edit by SADE Solis on 05/10/23 13:51 UA pH 6.5 Last Edit by SADE Solis on 05/10/23 13:51 UA Blood 0 Jerman/uL Last Edit by SADE Solis on 05/10/23 13:51 UA Specific [place] 1.015 Last Edit by SADE Solis on 05/10/23 13:51 UA Ketone Negative Last Edit by Chloé Burns, RMA on 05/10/23 13:51 UA Bilirubin 0 mg/dL Last Edit by Chloé Burns, RMA on 05/10/23 13:51 UA Glucose 0 mg/dL Last Edit by Chloé Burns, ARYANA on 05/10/23 13:51 Assessment & Plan Assessment & Plan (1) Renal cyst: Code(s): N28.1 - Cyst of kidney, acquired (2) BPH loc w urin obs/LUTS: Code(s): N40.1 - Benign prostatic hyperplasia with lower urinary tract symptoms (3) Renal stone: Code(s): N20.0 - Calculus of kidney Plan Twelve month follow-up Orders: Orders Prostate Specific Antigen 364 Days N40.1 - Benign prostatic hyperplasia with lower urinary tract symptoms AMB Urinalysis Automated Today Z13.9 - Encounter for screening, unspecified AMB Post Void Residual by ultrasound Today N40.1 - Benign prostatic hyperplasia with lower urinary tract symptoms Medications: Discontinued doxazosin Discontinued Reason: Patient Completed Course 8 mg PO DAILY 90 tabs 1RF Patient Instructions: Imaging studies, laboratory and physical exam results were discussed and reviewed in detail. No major barriers to patient understanding were identified. An opportunity to ask questions regarding the treatment plan was provided. All questions were answered. The patient expressed understanding and agreement with the above treatment plan. The patient is aware they should contact our office by phone for worsening of their current condition or the appearance of new urologic symptoms. Compliance is encouraged with any medications and followup testing that is ordered. It is a privilege to participate in the urologic care of your patient. If you have any questions or concerns regarding treatment for the above conditions, or other urologic issues, please do not hesitate to contact me. The office telephone contact is [phone]. This note is constructed using voice recognition software. While every effort has been made to ensure accuracy coach builder errors may have been included. Yours sincerely, Dr Yobani Martin MD, [facility] - Urology Providers of Expert, Compassionate Care for the Genitourinary System Coding Level of Care Code Est Pt Level 4 (51916) Diagnoses Renal cyst N28.1 BPH loc w urin obs/LUTS N40.1 Renal stone N20.0 CPT Codes Post Residual Void - PVR CPT Code: 69489-Rrcv Void Residual by ultrasound ([id number])
== END 2023-05-10 14:21 | disposition home or self-care (01) ==
PROVIDERS: PCP Internal Medicine; Visit Provider Urology
DX: N28.1 Cyst of kidney, acquired (principal); N40.1 Benign prostatic hyperplasia with lower urinary tract symptoms; N20.0 Calculus of kidney
CPT/HCPCS: 99214

== ENCOUNTER → 2023-05-10 13:24 | Outpatient (BNVA) | payer MEDICARE, MEDICAID, SELFPAY | PROVIDERS: PCP Internal Medicine; Visit Provider Urology | DX: N28.1 Cyst of kidney, acquired (principal); N20.0 Calculus of kidney; N40.1 Benign prostatic hyperplasia with lower urinary tract symptoms | CPT/HCPCS: 51798; 99212 ==

== ENCOUNTER 2023-06-02 07:18 | Outpatient (REF) | payer MEDICARE, MEDICAID, SELFPAY ==
--- NOTE | ~2023-06-02 | XR_ITS ---
EXAMINATION: XR KNEE AP STANDING X-RAY [place] RIGHT KNEE CLINICAL INFORMATION: Pain. COMPARISON: Radiograph right knee 04/18/2023. Radiograph left knee 02/02/2018. TECHNIQUE: AP bilateral standing view of the knees was obtained. [place] patella view of the right knee. FINDINGS: Mild joint space narrowing of the medial compartment in both knees. No significant spurring. No osseous erosions. Small calcific body possibly a loose body, measuring 0.3 cm projecting over the joint space of the left knee, unchanged compared to 02/02/2018. XR/XR knee RT 1V IMPRESSION: 1. Mild degenerative osteoarthritis of the medial compartment of both knees. 2. Possible loose body in the left knee, unchanged compared to 02/02/2018.
--- NOTE | ~2023-06-02 | XR_ITS ---
EXAMINATION: XR KNEE AP STANDING X-RAY [place] RIGHT KNEE CLINICAL INFORMATION: Pain. COMPARISON: Radiograph right knee 04/18/2023. Radiograph left knee 02/02/2018. TECHNIQUE: AP bilateral standing view of the knees was obtained. [place] patella view of the right knee. FINDINGS: Mild joint space narrowing of the medial compartment in both knees. No significant spurring. No osseous erosions. Small calcific body possibly a loose body, measuring 0.3 cm projecting over the joint space of the left knee, unchanged compared to 02/02/2018. XR/XR knee standing BI IMPRESSION: 1. Mild degenerative osteoarthritis of the medial compartment of both knees. 2. Possible loose body in the left knee, unchanged compared to 02/02/2018.
== END 2023-06-02 07:19 | disposition home or self-care (01) ==
LOC: HO.HOSX 07:18
PROVIDERS: Visit Provider Physician Assistant
DX: M17.11 Unilateral primary osteoarthritis, right knee (principal)
CPT/HCPCS: 20610; 73560; 73565; J1040

== ENCOUNTER 2023-06-02 08:41 | Outpatient (AMB) | payer MEDICARE, MEDICAID, SELFPAY ==
--- NOTE | 2023-06-02 08:44 | MHC.OFFVIS ---
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 Patient reports b/l knee pain with his right knee being the worse. Denies injury, states hx of OA. He was seen by rheumatology who referred him to PT which made his pain worse. His pain is worse with stair use and feels a clicking. States weakness with prolong sitting and swelling. Finds no relief with Tylenol arthritis and temporary relief with topical cream. 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 He states he has bilateral knee pain which is worse in his right knee. His pain is aggravated with standing, sitting and stair use. He has significant impairment with daily activities and has to take frequent breaks while walking due to his pain. He also c/o clicking in his knees and experiences weakness with prolonged sitting and ambulation. He was seen by rheumatology who referred him to physical therapy which worsened his pain. He finds no relief with Tylenol and finds transient relief with topical cream. He has not had any injury in the past. He has a history of OA. [facility] Medical History Anxiety Ascending aorta dilatation BPH loc w urin obs/LUTS CKD (chronic kidney disease) stage 3, GFR 30-59 ml/min Elevated blood pressure reading Essential hypertension Hypospadias, unspecified Left anterior knee pain Left knee pain Meatal stenosis Other chronic pain Renal cyst Renal stone Right anterior knee pain Surgical History Anal fistula History of inguinal hernia repair Family History Father No problems noted. Mother Hypertension Stroke Maternal Grandmother Diabetes Brother Pancreatic cancer Maternal Grandmother Lung cancer Maternal Grandfather Lung cancer Social History (Updated 06/02/23 @ 09:03 by Kayla Ryan Wilma) Housing: Apartment Alcohol intake: current Alcohol intake frequency: a few times a month Alcohol type: beer Patient Tobacco Use Status: Never used Tobacco e-Cigarette/Vaping Use: Never Used Second Hand Smoke Exposure: No service: No Current occupational status: disabled Current occupation: right hand dominant Cognitive needs: No Hearing needs: No Vision needs: No Review of Systems Const All systems reviewed & are unremarkable except as noted in HPI and below Physical Exam Vital Signs: BMI result Body Mass Index 27.0 Const General: cooperative, healthy appearing, comfortable, no acute distress, well developed and alert Orientation/consciousness: patient oriented x3 HEENT Head: Yes normal to inspection, Yes normocephalic and Yes atraumatic Eyes General: appearance normal, both eyes and all related structures Resp Effort & Inspection: normal respiratory effort and able to speak in complete sentences Cardio Rate: regular rate Peripheral pulses: Peripheral pulses 2+ throughout GI Palpation (GI): Soft to palpation Skin Lesions: no lesions Rashes: no rashes Neuro General: patient oriented x3 Extrem Other: Right knee: Skin intact, no erythema or joint effusion. Retropatellar tenderness along the medial and lateral joint line. Full ROM with crepitus. Negative Radha?s. No ligamentous laxity. NVI. Office Procedures Joint Injection/Drain Joint Injection/Drain Primary Site: right knee Prep: site was prepped using aseptic technique, ethochloride spray was applied and injection warnings given Injected: 80 mg of, DepoMedrol, with 8 mL of, 1% plain lidocaine and in the joint Approach Used: anterolateral Procedure: The patient tolerated the procedure well and there was some relief with the local anesthesia Coding 94108 - Glenohumeral/Tronchanteric Bursa/Intraarticular Procedure code (CPT) selection complete Results Reviewed Results Reviewed: 06/02/23 09:16 Lidocaine HCl 2 % MPF [Xylocaine 2 % MPF] 5 ml .ROUTE .STK-MED ONE methylPREDNISolone acetate [DEPO-MedroL] 80 mg .ROUTE .STK-MED ONE X-rays of the right knee obtained in the office today show medial and lateral joint space narrowing with patellofemoral arthritis. Assessment & Plan Assessment & Plan (1) Patellofemoral arthritis of right knee: Code(s): M17.11 - Unilateral primary osteoarthritis, right knee Plan We discussed options today which include steroid injection. They did consent to move forward with the right knee injection, which was tolerated well. I recommended rest, ice and elevation and OTC anti-inflammatories PRN for discomfort. If symptoms persist or worsens, patient will contact the office to discuss potential TKA, otherwise follow-up as needed. Orders: Orders XR knee RT 1V Today M25.561 - Pain in right knee XR knee standing BI Today M25.561 - Pain in right knee, M25.562 - Pain in left knee Patient Instructions: Scribed for Paula Monique PA-C, by Valeriy Cooper pesticide use medical coordinator, on 06/02/2023 at 9:00 AM EST. I, Paula Monique PA-C, have personally reviewed and agree with the information entered by the scribe. Coding Level of Care Code New Pt Level 3 (45189) Diagnoses Patellofemoral arthritis of right knee M17.11 CPT Codes Coding - Joint 7: 68172 - Glenohumeral/Tronchanteric Bursa/Intraarticular ([id number])
[2023-06-02 09:03] VITALS: BMI 27.0
== END 2023-06-02 09:39 | disposition home or self-care (01) ==
PROVIDERS: PCP Internal Medicine; Visit Provider Physician Assistant
DX: M17.11 Unilateral primary osteoarthritis, right knee (principal)
CPT/HCPCS: 20610; 99204

== ENCOUNTER 2023-08-30 08:45 | Outpatient (AMB) | payer MEDICARE, MEDICAID, SELFPAY ==
--- NOTE | 2023-08-30 08:58 | A.OFFPC_ITS ---
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: No Accompanied by: Self / Same As Patient Allergies Tetanus Vaccines and Toxoid [TETANUS VACCINES & TOXOID] Allergy (Severe, Verified 08/30/23 09:08) SWELLING rosuvastatin [From Crestor] Adverse Reaction (Intermediate, Verified 08/30/23 09:08) body aches Medication List - Last Reconciled 08/30/23 by Mel Harris MD aspirin 81 mg PO DAILY diclofenac sodium 1% 2 grams topical QID PRN 30 days furosemide 20 mg PO DAILY lisinopril 10 mg PO DAILY verapamil ER 240 mg PO DAILY Tobacco use date assessed: 12/06/22 Fall risk assessment: No Falls in past year Last assessed Fall Risk: 08/30/23 Dental Screening Dental Screen Date: 08/30/23 Did you have a dental visit in the last 12 months?: No Did you have a dental problem in the last 6 months where you did not have access to dental care?: No Was dental information given to patient?: Patient has dentist HPI HPI Comments History of Present Illness Details This is a 67-year-old male with chronic kidney disease stage 3 that comes for his physical exam. Had a Cologuard in October 2022 that was negative. No chest pain or shortness of breath. No change in bowel or bladder habits. Has knee osteoarthritis follow by Ortho. Use a cane occasionally. [facility] Medical History Left knee pain CKD (chronic kidney disease) stage 3, GFR 30-59 ml/min Essential hypertension Ascending aorta dilatation Renal cyst Renal stone Anxiety Other chronic pain Right anterior knee pain Left anterior knee pain Meatal stenosis Hypospadias, unspecified Elevated blood pressure reading BPH loc w urin obs/LUTS Surgical History Anal fistula History of inguinal hernia repair Family History (Updated 08/30/23 @ 09:11 by Mel Harris MD) Father No problems noted. Mother Stroke Maternal Grandmother Diabetes Brother Pancreatic cancer Maternal Grandmother Lung cancer Maternal Grandfather Lung cancer Housing: Apartment Alcohol intake: current Alcohol intake frequency: a few times a month Alcohol type: beer Patient Tobacco Use Status: Never used Tobacco e-Cigarette/Vaping Use: Never Used Second Hand Smoke Exposure: No service: No Current occupational status: disabled Current occupation: right hand dominant Cognitive needs: No Hearing needs: No Vision needs: No Questionnaire Thrive Questionnaire Date Thrive assessed: 04/18/23 TRI-7 AMB Questionnaire TRI-7 Date TRI - 7 assessed: 04/18/23 Source: Developed by Drs. Juarez Rosales, Suzie Saldivar, Lamont Livingston and colleagues, with an educational zehra from [employer]. Review of Systems Const All systems reviewed & are unremarkable except as noted in HPI and below Eyes Reports no additional complaints, Denies change in vision and Denies other visual disturbances Card Denies chest pain at rest, Denies chest pain with activity, Denies edema, Denies irregular heart rhythm, Denies claudication, Denies dyspnea, Denies dyspnea on exertion, Denies orthopnea, Denies paroxysmal nocturnal dyspnea and Denies slow heart rate Resp Denies cough, Denies dyspnea and Denies dyspnea on exertion GI Denies abdominal pain, Denies change in bowel habits, Denies excessive flatus, Denies nausea and Denies vomiting Denies urinary hesitancy, Denies urinary incontinence and Denies urinary urgency Musc Denies abnormal gait, Denies atrophy, Denies deformity and Denies limited range of motion Skin/Breast Denies bleeding lesions, Denies changing lesions and Denies rash Neuro Denies abnormal gait and Denies lack of coordination Physical exam (Primary Care) Vital Signs: Last Vital Signs BP 128/80 08/30/23 09:00 BMI result Body Mass Index 27.1 Tobacco/Smoking Status: Tobacco use Status Tobacco use date assessed 12/06/22 08/30/23 09:00 Patient Tobacco Use Status Never used Tobacco 08/30/23 09:00 e-Cigarette/Vaping Use Never Used 08/30/23 09:00 Thrive Assessment: Date of Thrive Assessment Date Thrive assessed 04/18/23 08/30/23 09:00 Const Orientation/consciousness: patient oriented x3 HENMT Head: Yes normal to inspection, Yes normocephalic and Yes atraumatic Ears: external ears normal Eyes General: appearance normal, both eyes and all related structures Eyelids: Yes eyelids normal Conjunctivae: conjunctivae normal Neck Neck: Yes normal visual inspection and Yes supple Resp Effort & Inspection: normal respiratory effort Auscultation: clear to auscultation bilaterally Cardio Jugular venous distension: no JVD Rate: regular rate Rhythm: regular rhythm Heart sounds: S1 normal heart sound present and S2 normal heart sound present GI Inspection: Yes normal to inspection Palpation (GI): Soft to palpation and nontender Auscultation: normal bowel sounds Skin General skin exam: no rashes or lesions noted Neuro General: patient oriented x3 and no focal motor deficits Extrem General: Yes full ROM Psych Appearance: grossly normal Office Procedures Flu Questionnaire Does the patient have a severe egg allergy?: No Immunizations flu vacc [id number] 6mos up(PF) 60 mcg(15 mcgx4)/0.5 mL IM syringe Performing Provider: Mel Harris MD [facility] Documented (not given) by: SADE Mims on 08/30/23 09:26 Reason Not Given: Not Given Assessment and Plan Assessment & Plan (1) Physical exam: Code(s): Z00.00 - Encounter for general adult medical examination without abnormal findings Plan: Repeat in a year. (2) CKD (chronic kidney disease) stage 3, GFR 30-59 ml/min: Code(s): N18.30 - Chronic kidney disease, stage 3 unspecified Qualifiers: Chronic kidney disease stage 3 subtype: stage 3b (GFR 30-44) Qualified Code(s): N18.32 - Chronic kidney disease, stage 3b Plan: Avoid NSAIDs. Follow-up with nephrology. Keep blood pressure within goal being less than 130/80. Orders: Orders Influenza [id number] Immunization Today Z23 - Encounter for immunization Lipid Panel Today Z00.00 - Encounter for general adult medical examination without abnormal findings [place]. Panel Fast Today Z00.00 - Encounter for general adult medical examination without abnormal findings Coding Level of Care Code Est Pt Prev Care >65y(92398) Diagnoses Physical exam Z00.00 Stage 3b chronic kidney disease N18.32 Chronic kidney disease stage 3 subtype: stage 3b (GFR 30-44) Time Spent (min) 32
[2023-08-30 09:00] VITALS: BP 128/80; BMI 27.1
== END 2023-08-30 09:17 | disposition home or self-care (01) ==
PROVIDERS: Visit Provider Internal Medicine
DX: Z00.00 Encounter for general adult medical examination without abnormal findings (principal); N18.32 Chronic kidney disease, stage 3b
CPT/HCPCS: 99397

== ENCOUNTER 2023-09-01 08:22 | Outpatient (AMB) | payer MEDICARE, MEDICAID, SELFPAY ==
--- NOTE | 2023-09-01 08:31 | AM.OFFVISNUR ---
Intake Intake Visit Reasons: FLU SHOT Allergies Tetanus Vaccines and Toxoid [TETANUS VACCINES & TOXOID] Allergy (Severe, Verified 08/30/23 09:08) SWELLING rosuvastatin [From Crestor] Adverse Reaction (Intermediate, Verified 08/30/23 09:08) body aches Office Procedures Flu Questionnaire Does the patient have a severe egg allergy?: No Does the patient have severe life threatening allergies?: No Does the patient have a fever or illness today?: No Has the patient ever had Guillain-Marietta Syndrome?: No Has the patient ever had any past reaction to a flu shot?: No Immunizations flu vacc [id number] 6mos up(PF) 60 mcg(15 mcgx4)/0.5 mL IM syringe Performing Provider: Mel Harris MD [facility] Administered by: Cherelle De Paz RN on 09/01/23 08:31 Dose Route Admin Location Dispensed Lot Number Expiration Date NDC Lead Nurse 0.5 mL IM Left Deltoid 0.5 mL [id number] 04/01/24 84755-927-61 [employer] VIS Given Date VIS Provided VIS Publication Date 09/01/23 Single Vaccine 21 Eligibility Eligibility Date Funding Source Not [facility] Eligible 09/01/23 Private Coding Assessment & Plan Assessment & Plan Orders: Orders Influenza [id number] Immunization Today Z23 - Encounter for immunization
== END 2023-09-01 08:46 | disposition home or self-care (01) ==
PROVIDERS: PCP Internal Medicine; Visit Provider Internal Medicine
DX: Z23 Encounter for immunization (principal)
CPT/HCPCS: 90471; 90686

== ENCOUNTER 2023-09-01 09:14 | Outpatient (AMB) | payer MEDICARE, MEDICAID, SELFPAY ==
--- NOTE | 2023-09-01 09:21 | MHC.OFFVIS ---
Intake Intake Visit Reasons: OV-Right knee injection-last injection 06/02/23 Intake Note: Tato a 67 year old male presents today for a follow up of left knee pain. Patient reports injection to right knee on 06/02/23 provided him good relief. He is requesting an injection to his left knee. 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 He had his right knee injected on 06/02/23 which provided him good relief. . He does not have a history of diabetes. [facility] Medical History Left knee pain CKD (chronic kidney disease) stage 3, GFR 30-59 ml/min Essential hypertension Ascending aorta dilatation Renal cyst Renal stone Anxiety Other chronic pain Right anterior knee pain Left anterior knee pain Meatal stenosis Hypospadias, unspecified Elevated blood pressure reading BPH loc w urin obs/LUTS Surgical History Anal fistula History of inguinal hernia repair Family History (Updated 08/30/23 @ 09:11 by Mel Harris MD) Father No problems noted. Mother Stroke Maternal Grandmother Diabetes Brother Pancreatic cancer Maternal Grandmother Lung cancer Maternal Grandfather Lung cancer Social History Housing: Apartment Alcohol intake: current Alcohol intake frequency: a few times a month Alcohol type: beer Patient Tobacco Use Status: Never used Tobacco e-Cigarette/Vaping Use: Never Used Second Hand Smoke Exposure: No service: No Current occupational status: disabled Current occupation: right hand dominant Cognitive needs: No Hearing needs: No Vision needs: No Review of Systems Const All systems reviewed & are unremarkable except as noted in HPI and below Physical Exam Const General: cooperative, healthy appearing, comfortable, no acute distress, well developed and alert Orientation/consciousness: patient oriented x3 HEENT Head: Yes normal to inspection, Yes normocephalic and Yes atraumatic Eyes General: appearance normal, both eyes and all related structures Neck Neck: Yes normal visual inspection and Yes no lymphadenopathy Resp Effort & Inspection: normal respiratory effort and able to speak in complete sentences Cardio Rate: regular rate Peripheral pulses: Peripheral pulses 2+ throughout GI Inspection: Yes normal to inspection Palpation (GI): Soft to palpation Skin General skin exam: no rashes or lesions noted Neuro General: patient oriented x3 Extrem Other: Left knee: Skin intact, no erythema or joint effusion. Lateral retropatellar tenderness present. Full ROM with crepitus. Negative Radha?s. No ligamentous laxity. NVI. Psych Appearance: grossly normal Mental Status: mental status grossly normal Office Procedures Joint Injection/Drain Joint Injection/Drain Primary Site: left knee Prep: site was prepped using aseptic technique, ethochloride spray was applied and injection warnings given Injected: 80 mg of, DepoMedrol, with 8 mL of, 1% plain lidocaine and in the joint Approach Used: anterolateral Procedure: The patient tolerated the procedure well and there was some relief with the local anesthesia Coding 74428 - Glenohumeral/Tronchanteric Bursa/Intraarticular Procedure code (CPT) selection complete Assessment & Plan Assessment & Plan (1) Patellofemoral arthritis of left knee: Code(s): M17.12 - Unilateral primary osteoarthritis, left knee Plan We discussed options today which include steroid injection. They did consent to move forward with the left knee injection, which was tolerated well. I recommended rest, ice and elevation and OTC anti-inflammatories PRN for discomfort. If symptoms persist or worsens over the next 6-8 weeks, patient will contact the office, otherwise follow-up as needed. Scribed for Paula Monique PA-C, by Soy De Paz medical officer, on 09/01/2023. I, Paula Monique PA-C, have personally reviewed and agree with the information entered by the scribe. Coding Level of Care Code Est Pt Level 3 (53933) Diagnoses Patellofemoral arthritis of left knee M17.12 CPT Codes Coding - Joint 7: 22935 - Glenohumeral/Tronchanteric Bursa/Intraarticular ([id number])
== END 2023-09-01 09:49 | disposition home or self-care (01) ==
PROVIDERS: PCP Internal Medicine; Visit Provider Physician Assistant
DX: M17.12 Unilateral primary osteoarthritis, left knee (principal)
CPT/HCPCS: 20610; 99213

== ENCOUNTER → 2023-09-01 09:14 | Outpatient (BNVA) | payer MEDICARE, MEDICAID, SELFPAY | PROVIDERS: PCP Internal Medicine; Visit Provider Physician Assistant | DX: M17.12 Unilateral primary osteoarthritis, left knee (principal) | CPT/HCPCS: 20610; 99212; J1040 ==

== ENCOUNTER 2023-09-20 14:48 | Outpatient (AMB) | payer MEDICARE, MEDICAID, SELFPAY ==
--- NOTE | 2023-09-20 15:00 | MHC.OFFVIS ---
Intake Vital Signs 09/20/23 15:01 Height 5 ft 10 in Weight 186 lb 1.122 oz BMI 26.7 BP 112/62 Blood Pressure Location Lt brachial Position Sitting Pulse 81 Intake Visit Reasons: 1 yr f/up echo Intake Note: 1 yr f/up echo/ pt its feeling Ceramic Coater Machine Required: Yes Ceramic Coater Machine Name: Daughter - form signed Accompanied by: Daughter Allergies Tetanus Vaccines and Toxoid [TETANUS VACCINES & TOXOID] Allergy (Severe, Verified 09/01/23 09:34) SWELLING rosuvastatin [From Crestor] Adverse Reaction (Intermediate, Verified 09/01/23 09:34) body aches Medication List - Last Reconciled 09/20/23 by Sania Griffith NP aspirin 81 mg PO DAILY furosemide 20 mg PO DAILY lisinopril 10 mg PO DAILY verapamil ER 240 mg PO DAILY HPI HPI Comments History of Present Illness Details 67-year-old male presents today with his daughter for a follow-up on his HTN and stable CAD. His daughter is interpreting and appropriate form signed. He reports he has been doing well since his last visited. Denies any symptoms. He had his echocardiogram on 05/03/23 which showed EF of 63% and his ascending aorta measuring 4.10 cm. He take his blood pressures at home and they are about 110-120/70s. He has been doing his ADLs without difficulties. [facility] Medical History Left knee pain CKD (chronic kidney disease) stage 3, GFR 30-59 ml/min Essential hypertension Ascending aorta dilatation Renal cyst Renal stone Anxiety Other chronic pain Right anterior knee pain Left anterior knee pain Meatal stenosis Hypospadias, unspecified Elevated blood pressure reading BPH loc w urin obs/LUTS Surgical History Anal fistula History of inguinal hernia repair Family History Father No problems noted. Mother Stroke Maternal Grandmother Diabetes Brother Pancreatic cancer Maternal Grandmother Lung cancer Maternal Grandfather Lung cancer Social History Housing: Apartment Alcohol intake: current Alcohol intake frequency: a few times a month Alcohol type: beer Patient Tobacco Use Status: Never used Tobacco e-Cigarette/Vaping Use: Never Used Second Hand Smoke Exposure: No service: No Current occupational status: disabled Current occupation: right hand dominant Cognitive needs: No Hearing needs: No Vision needs: No Review of Systems Const Denies chills, Denies fatigue, Denies fever(s), Denies frequent falls, Denies weakness, Denies weight gain and Denies weight loss ENT Denies dizziness and Denies mouth lesions Card Denies chest pain, Denies leg edema, Denies lightheadedness, Denies palpitations, Denies dyspnea and Denies dyspnea on exertion Resp Denies cough, Denies dyspnea and Denies dyspnea on exertion GI Denies hematochezia Musc Denies abnormal gait, Denies muscle weakness, Denies numbness, Denies radiating pain into limb and Denies tingling Neuro Denies abnormal gait, Denies dizziness, Denies frequent falls, Denies numbness, Denies tingling and Denies weakness Endo Denies fatigue and Denies palpitations Physical Exam Vital Signs: Last Vital Signs Pulse 81 09/20/23 15:01 BP 112/62 09/20/23 15:01 BMI result Body Mass Index 26.7 Const General: healthy appearing and no acute distress Orientation/consciousness: patient oriented x3 HEENT Head: Yes normal to inspection Eyes General: appearance normal, both eyes and all related structures Neck Neck: Yes normal visual inspection Chest Chest palpation & inspection: normal inspection of the chest Resp Effort & Inspection: normal respiratory effort Auscultation: clear to auscultation bilaterally Cardio Jugular venous distension: no JVD Palpation: normal PMI Rate: regular rate Rhythm: regular rhythm Heart sounds: S1 normal heart sound present, S2 normal heart sound present, no click, no gallops, no murmurs and no rubs GI Inspection: Yes normal to inspection Palpation (GI): Soft to palpation Skin General skin exam: no rashes or lesions noted Neuro General: patient oriented x3 Extrem General: Yes normal to inspection Psych Appearance: grossly normal Office Procedures EKG Details: EKG today Normal Sinus Rhythm. Rate 81 bpm. QRS 88ms. QTc 448ms. No significant changes from last. [id number], Complete Assessment & Plan Assessment & Plan (1) Ascending aorta dilatation: Code(s): I77.810 - Thoracic aortic ectasia (2) Atherosclerotic cardiovascular disease: Code(s): I25.10 - Atherosclerotic heart disease of [place] coronary artery without angina pectoris (3) Essential hypertension: Code(s): I10 - Essential (primary) hypertension Plan Will repeat echo in one year. He is due for lab work from his PCP - will have those CC'd to me once he completes them. Keep blood pressure within goal. Report any new symptoms and ED care if needed. Orders: Orders Lipid Panel 08/30/23 Z00.00 - Encounter for general adult medical examination without abnormal findings Comprehensive [place]. Panel Fast 08/30/23 Z00.00 - Encounter for general adult medical examination without abnormal findings CA echo transthoracic complete 10 Months I10 - Essential (primary) hypertension, I25.10 - Atherosclerotic heart disease of [place] coronary artery without angina pectoris, I77.810 - Thoracic aortic ectasia Coding Level of Care Code Est Pt Level 3 (47992) Diagnoses Ascending aorta dilatation I77.810 Atherosclerotic cardiovascular disease I25.10 Essential hypertension I10 CPT Codes EKG - CPT: 68646-[id number], Complete ([id number])
[2023-09-20 15:01] VITALS: BP 112/62; PULSE 81; BMI 26.7
== END 2023-09-20 15:36 | disposition home or self-care (01) ==
PROVIDERS: Visit Provider Nurse Practitioner
DX: I25.10 Atherosclerotic heart disease of native coronary artery without angina pectoris (principal)
CPT/HCPCS: 93010; 99213

== ENCOUNTER → 2023-09-20 14:48 | Outpatient (BNVA) | payer MEDICARE, MEDICAID, SELFPAY | PROVIDERS: Visit Provider Nurse Practitioner | DX: I77.810 Thoracic aortic ectasia (principal); I25.10 Atherosclerotic heart disease of native coronary artery without angina pectoris; I10 Essential (primary) hypertension | CPT/HCPCS: 93005; 99212 ==

== ENCOUNTER 2024-01-24 08:04 | Outpatient (REF) | payer MEDICARE, MEDICAID, SELFPAY ==
[2024-01-24 09:06] LABS: Alanine Aminotransferase 30 U/L (0-40); Albumin Level 4.2 g/dL (3.5-5.0); Alkaline Phosphatase 79 U/L (39-117); Anion Gap 11 (12-20); Aspartate Amino Transferase 24 U/L (5-37); Bilirubin Total 0.7 mg/dL (0.0-1.0); Blood Urea Nitrogen 21 mg/dL (9-16); Calcium 9.6 mg/dL (8.4-10.2); Carbon Dioxide 27 mmol/L (22-29); Chloride 106 mmol/L (96-108); Cholesterol 182 mg/dL (<200); Estimated Glomerular Filt Rate 50; Glucose Fasting 109 mg/dL (60-99); HDL Cholesterol 43 mg/dL (>40); LDL Cholesterol Calculated 124 mg/dL (<100); Potassium 4.9 mmol/L (3.3-5.1); Sodium 139 mmol/L (135-145); Total Protein 7.7 g/dL (6.5-8.0); Triglycerides 75 mg/dL (<150)
== END 2024-01-24 08:05 | disposition home or self-care (01) ==
LOC: HO.LAB 08:04
PROVIDERS: PCP Internal Medicine; Visit Provider Nurse Practitioner
DX: Z00.00 Encounter for general adult medical examination without abnormal findings (principal); Z13.6 Encounter for screening for cardiovascular disorders
CPT/HCPCS: 36415; 80053; 80061

== ENCOUNTER 2024-01-30 08:01 | Outpatient (AMB) | payer MEDICARE, MEDICAID, SELFPAY ==
--- NOTE | 2024-01-30 08:04 | MHC.PC.OV ---
Vital Signs 01/30/24 08:06 Height 5 ft 10 in Weight 194 lb BMI 27.8 BP 126/70 Blood Pressure Location Lt brachial Position Sitting Intake Visit Reasons: bp Intake Note: Patient here for a follow up BP Pediatric Dietician Required: No Accompanied by: Self / Same As Patient Allergies Tetanus Vaccines and Toxoid [TETANUS VACCINES & TOXOID] Allergy (Severe, Verified 01/30/24 08:17) SWELLING rosuvastatin [From Crestor] Adverse Reaction (Intermediate, Verified 01/30/24 08:17) body aches Medication List - Last Reconciled 01/30/24 by Mel Harris MD aspirin 81 mg PO DAILY doxazosin 8 mg PO BEDTIME 90 days furosemide 20 mg PO DAILY lisinopril 10 mg PO DAILY verapamil ER 240 mg PO DAILY Tobacco use date assessed: 01/30/24 Fall risk assessment: No Falls in past year Last assessed Fall Risk: 01/30/24 Dental Screening Dental Screen Date: 01/30/24 Did you have a dental visit in the last 12 months?: No Did you have a dental problem in the last 6 months where you did not have access to dental care?: No Was dental information given to patient?: Patient declined HPI HPI Comments History of Present Illness Details This is a 68-year-old male with hypertension, chronic kidney disease stage 3, ascending aortic dilation and impaired glucose tolerance that comes today for follow-up his conditions. Blood pressure stable. GFR has improved to 50. He is aware he has to avoid NSAIDs. Last echocardiogram done 2022 showing mild ascending aortic dilation that is follow by cardiology. Denies any chest pain or shortness of breath. Compliant with medications. Blood glucose has been stable. Patient denies polyuria, polydipsia or unintentional weight loss. [facility] Medical History Left knee pain CKD (chronic kidney disease) stage 3, GFR 30-59 ml/min Essential hypertension Ascending aorta dilatation Renal cyst Renal stone Anxiety Other chronic pain Right anterior knee pain Left anterior knee pain Meatal stenosis Hypospadias, unspecified Elevated blood pressure reading BPH loc w urin obs/LUTS Surgical History Anal fistula History of inguinal hernia repair Family History Father No problems noted. Mother Stroke Maternal Grandmother Diabetes Brother Pancreatic cancer Maternal Grandmother Lung cancer Maternal Grandfather Lung cancer Social History Housing: Apartment Alcohol intake: current Alcohol intake frequency: a few times a month Alcohol type: beer Patient Tobacco Use Status: Never used Tobacco e-Cigarette/Vaping Use: Never Used Second Hand Smoke Exposure: No service: No Current occupational status: disabled Current occupation: right hand dominant Cognitive needs: No Hearing needs: No Vision needs: No Questionnaire PHQ-9 Over the last 2 weeks, how often have you been bothered by any of the following problems? 1. Little interest or pleasure in doing things: not at all 2. Feeling down, depressed, or hopeless: not at all 3. Trouble falling or staying asleep, or sleeping too much: not at all 4. Feeling tired or having little energy: not at all 5. Poor appetite or overeating: not at all 6. Feeling bad about yourself - or that you are a failure or have let yourself or your family down: not at all 7. Trouble concentrating on things, such as reading the newspaper or watching television: not at all 8. Moving or speaking so slowly that other people could have noticed. Or the opposite - being so fidgety or restless that you have been moving around a lot more than usual: not at all 9. Thoughts that you would be better off or of hurting yourself in some way: not at all Total score: 0 Depression Screening Interpretation: Negative Depression Screening Done: Yes 30316 - PHQ-9 Billing: Yes Source: Developed by Drs. Juarez Rosales, Suzie Saldivar, Lamont Livingston and colleagues, with an educational zehra from [employer]. Thrive Questionnaire Date Thrive assessed: 01/30/24 I am a: Patient What is your living situation today?: I have a steady place to live Within the past 12 months, did the food you bought not last and you didn't have the money to get more?: Never true Within the past 12 months, did you worry whether your food would run out before you got money to buy more?: Never true Do you have trouble paying for medicines?: No Do you have trouble getting transportation to medical appointments?: No Do you have trouble paying your heating and electricity bill?: No Do you have trouble taking care of your child, family member or friend?: No Do you have trouble with day-to-day activities such as bathing, preparing meals, shopping, managing finances, etc.?: No Are you currently unemployed and looking for a job?: No Are you interested in more education?: No Please select the resources that you would like help with: None Currently or been in a relationship where the following occur: no concerns reported THRIVE Score: 0 AUDIT C Alcohol Use Questionnaire (AUDIT-C) 1. How often do you have a drink containing alcohol?: Monthly or less 2. How many drinks containing alcohol do you have on a typical day when you are drinking?: 1 or 2 3. How often do you have six or more drinks on one occasion?: Never Total Score: 1 Score Reviewed/Action Taken: No TRI-7 AMB Questionnaire TRI-7 Date TRI - 7 assessed: 01/30/24 Feeling nervous, anxious, or on edge: 0 = Not at all Not being able to stop or control worryin = Not at all Worrying too much about different things: 0 = Not at all Trouble relaxin = Not at all Being so restless that it is hard to sit still: 0 = Not at all Becoming easily annoyed or irritable: 0 = Not at all Feeling afraid as if something awful might happen: 0 = Not at all Total TRI-7 score (0-4 normal; 5-9 mild; 10-14 moderate; 15-21 severe): 0 Source: Developed by Drs. Juarez Rosales, Suzie Saldivar, Lamont Livingston and colleagues, with an educational zehra from [employer]. TRI-7 Assessment Billing TRI-7 Assessment Tool: TRI-7 Assessment 23085 Review of Systems Const All systems reviewed & are unremarkable except as noted in HPI and below Eyes Reports no additional complaints, Denies change in vision and Denies other visual disturbances Card Denies chest pain at rest, Denies chest pain with activity, Denies edema, Denies irregular heart rhythm, Denies claudication, Denies dyspnea, Denies dyspnea on exertion, Denies orthopnea, Denies paroxysmal nocturnal dyspnea and Denies slow heart rate Resp Denies cough, Denies dyspnea and Denies dyspnea on exertion Physical exam (Primary Care) Vital Signs: Last Vital Signs BP 126/70 01/30/24 08:06 BMI result Body Mass Index 27.8 Tobacco/Smoking Status: Tobacco use Status Tobacco use date assessed 01/30/24 01/30/24 08:10 Patient Tobacco Use Status Never used Tobacco 01/30/24 08:05 e-Cigarette/Vaping Use Never Used 01/30/24 08:05 PHQ-9: PHQ-9 Score PHQ-9: Total score 0 01/30/24 08:12 Depression Screening Interpretation: Negative Thrive Assessment: Date of Thrive Assessment Date Thrive assessed 01/30/24 01/30/24 08:10 Currently or been in a relationship where the following occur: no concerns reported Resp Effort & Inspection: normal respiratory effort Auscultation: clear to auscultation bilaterally Cardio Jugular venous distension: no JVD Rate: regular rate Rhythm: regular rhythm Heart sounds: S1 normal heart sound present and S2 normal heart sound present Extrem General: Yes full ROM Psych Appearance: grossly normal Assessment and Plan Assessment & Plan (1) CKD (chronic kidney disease) stage 3, GFR 30-59 ml/min: Code(s): N18.30 - Chronic kidney disease, stage 3 unspecified Qualifiers: Chronic kidney disease stage 3 subtype: stage 3b (GFR 30-44) Qualified Code(s): N18.32 - Chronic kidney disease, stage 3b Plan: Avoid NSAIDs. Keep blood pressure within goal. (2) Essential hypertension: Code(s): I10 - Essential (primary) hypertension Plan: Continue aspirin, doxazosin and verapamil. Blood pressure goal is equal or less than 130/80. (3) Ascending aorta dilatation: Code(s): I77.810 - Thoracic aortic ectasia Plan: Follow-up with cardiology. (4) Impaired glucose tolerance: Code(s): R73.02 - Impaired glucose tolerance (oral) Plan: Was advised to do a low-carbohydrate diet. Repeat fasting blood glucose in 5 months. Orders: Orders IRON PROFILE 5 Months D64.9 - Anemia, unspecified Comprehensive [place]. Panel Fast 5 Months I10 - Essential (primary) hypertension Lipid Panel 5 Months E78.5 - Hyperlipidemia, unspecified Vitamin D 25-OH Total 5 Months E55.9 - Vitamin D deficiency, unspecified Complete Blood Count Auto Diff 5 Months D64.9 - Anemia, unspecified Medications: Refilled aspirin 81 mg PO DAILY 90 tabs 3RF Coding Level of Care Code Est Pt Level 4 (42015) Diagnoses Stage 3b chronic kidney disease N18.32 Chronic kidney disease stage 3 subtype: stage 3b (GFR 30-44) Essential hypertension I10 Ascending aorta dilatation I77.810 Impaired glucose tolerance R73.02 Additional Codes TRI-7 Assessment Billing - TRI-7 Assessment Tool: TRI-7 Assessment 48972 ([id number]) Time Spent (min) 22
[2024-01-30 08:06] VITALS: BP 126/70; BMI 27.8
== END 2024-01-30 08:25 | disposition home or self-care (01) ==
PROVIDERS: PCP Internal Medicine; Visit Provider Internal Medicine
DX: I12.9 Hypertensive chronic kidney disease with stage 1 through stage 4 chronic kidney disease, or unspecified chronic kidney disease (principal); N18.32 Chronic kidney disease, stage 3b; I77.810 Thoracic aortic ectasia; R73.02 Impaired glucose tolerance (oral)
CPT/HCPCS: 99214

== ENCOUNTER 2024-07-13 08:01 | Outpatient (REF) | payer MEDICARE, MEDICAID, SELFPAY ==
[2024-07-13 08:10] LABS: MANUAL DIFF FLAG NO
[2024-07-13 08:40] LABS: Basophils Absolute Auto 0.1 X10*3/uL (0.0-0.2); Basophils Percent Auto 0.9 % (0-2); Eosinophils Absolute Auto 0.8 X10*3/uL (0.0-0.4); Eosinophils Percent Auto 6.7 % (0-4); Hematocrit 44.6 % (42.0-52.0); Hemoglobin 14.8 g/dl (14.0-18.0); Imm Gran Abs Auto 0.04 X10*3/uL (0.00-0.03); Imm Gran Pct Auto 0.4 % (0.0-0.4); Lymphocytes Absolute Auto 2.8 X10*3/uL (1.2-4.9); Lymphocytes Percent Auto 24.6 % (20-40); Mean Corpuscular HGB Conc 33.2 g/dl (31.0-36.0); Mean Corpuscular Hemoglobin 30.7 pg (27.0-33.0); Mean Corpuscular Volume 92.5 fL (80.0-98.0); Mean Platelet Volume 11.3 fL (9.4-12.4); Monocytes Absolute Auto 0.9 X10*3/uL (0.1-1.2); Monocytes Percent Auto 7.9 % (2-11); Neutrophils Absolute Auto 6.8 x10*3/uL (2.0-8.3); Neutrophils Percent Auto 59.5 % (45-73); Platelet Count 223 X10*3/uL (160-400); Red Blood Count 4.82 X10*6/uL (4.60-5.80); White Blood Count 11.4 X10*3/uL (4.8-10.8)
[2024-07-13 09:21] LABS: Alanine Aminotransferase 31 U/L (0-40); Albumin Level 4.1 g/dL (3.5-5.0); Alkaline Phosphatase 89 U/L (39-117); Anion Gap 11 (12-20); Aspartate Amino Transferase 24 U/L (5-37); Bilirubin Total 0.8 mg/dL (0.0-1.0); Blood Urea Nitrogen 19 mg/dL (9-16); Calcium 9.5 mg/dL (8.4-10.2); Carbon Dioxide 29 mmol/L (22-29); Chloride 104 mmol/L (96-108); Cholesterol 183 mg/dL (<200); Estimated Glomerular Filt Rate 53; Glucose Fasting 113 mg/dL (60-99); HDL Cholesterol 42 mg/dL (>40); Iron 93 mcg/dL (45-160); LDL Cholesterol Calculated 122 mg/dL (<100); Percent Iron Saturation 35 % (15-50); Potassium 3.9 mmol/L (3.3-5.1); Sodium 140 mmol/L (135-145); Total Iron Binding Capacity 269 mcg/dL (228-428); Total Protein 7.5 g/dL (6.5-8.0); Triglycerides 99 mg/dL (<150); Unsaturated Iron Binding 176 ug/dL
[2024-07-13 09:44] LABS: Vitamin D 25-OH Total 31.3 ng/mL (>30)
[2024-07-13 09:45] LABS: Prostate Specific Antigen 1.04 ng/mL (<0.05-4.0)
== END 2024-07-13 08:02 | disposition home or self-care (01) ==
LOC: HO.LAB 08:01
PROVIDERS: Urology; PCP Internal Medicine; Visit Provider Internal Medicine
DX: D64.9 Anemia, unspecified (principal); I10 Essential (primary) hypertension; E78.5 Hyperlipidemia, unspecified; N40.1 Benign prostatic hyperplasia with lower urinary tract symptoms; E55.9 Vitamin D deficiency, unspecified; R73.02 Impaired glucose tolerance (oral); Z12.5 Encounter for screening for malignant neoplasm of prostate
CPT/HCPCS: 36415; 80053; 80061; 82306; 83540; 84153; 85025

== ENCOUNTER 2024-07-19 07:56 | Outpatient (AMB) | payer MEDICARE, MEDICAID, SELFPAY ==
[2024-07-19 08:01] VITALS: BP 130/70; BMI 27.1
--- NOTE | 2024-07-19 08:01 | MHC.PC.OV ---
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 Operator Required: No Accompanied by: Self / Same As Patient Allergies Tetanus Vaccines and Toxoid [TETANUS VACCINES & TOXOID] Allergy (Severe, Verified 07/19/24 08:15) SWELLING rosuvastatin [From Crestor] Adverse Reaction (Intermediate, Verified 07/19/24 08:15) body aches Medication List - Last Reconciled 07/19/24 by Mel Harris MD aspirin 81 mg PO DAILY doxazosin 8 mg PO BEDTIME 90 days ezetimibe (Zetia) 10 mg PO DAILY furosemide 20 mg PO DAILY lisinopril 10 mg PO DAILY verapamil ER 240 mg PO DAILY Tobacco use date assessed: 01/30/24 Fall risk assessment: No Falls in past year Last assessed Fall Risk: 07/19/24 Dental Screening Dental Screen Date: 01/30/24 HPI HPI Comments History of Present Illness Details This is a 68-year-old male with hypertension, chronic kidney disease stage 3, impaired glucose tolerance and leukocytosis that comes today for follow-up on his conditions. Blood pressure stable. He stopped taking Zetia but cholesterol is well controlled. GFR improved from 50 to 53. Denies any polyuria, polydipsia or unintentional weight loss. Fasting blood glucose has worsened and dietary changes were advised. Has elevated white blood cells and will be repeated. Denies any chest pain or shortness on breath. [facility] Medical History (Updated 07/19/24 @ 08:19 by Mel Harris MD) Left knee pain CKD (chronic kidney disease) stage 3, GFR 30-59 ml/min Essential hypertension Ascending aorta dilatation Renal cyst Renal stone Anxiety Other chronic pain Right anterior knee pain Left anterior knee pain Meatal stenosis Hypospadias, unspecified Elevated blood pressure reading BPH loc w urin obs/LUTS Surgical History Anal fistula History of inguinal hernia repair Family History Father No problems noted. Mother Stroke Maternal Grandmother Diabetes Brother Pancreatic cancer Maternal Grandmother Lung cancer Maternal Grandfather Lung cancer Social History Housing: Apartment Alcohol intake: current Alcohol intake frequency: a few times a month Alcohol type: beer Patient Tobacco Use Status: Never used Tobacco e-Cigarette/Vaping Use: Never Used Second Hand Smoke Exposure: No service: No Current occupational status: disabled Current occupation: right hand dominant Cognitive needs: No Hearing needs: No Vision needs: No Questionnaire Thrive Questionnaire Date Thrive assessed: 01/30/24 TRI-7 AMB Questionnaire TRI-7 Date TRI - 7 assessed: 01/30/24 Source: Developed by Drs. Juarez Rosales, Suzie Saldivar, Lamont Livingston and colleagues, with an educational zehra from [employer]. Review of Systems Const All systems reviewed & are unremarkable except as noted in HPI and below Card Denies chest pain at rest, Denies chest pain with activity, Denies edema, Denies irregular heart rhythm, Denies claudication, Denies dyspnea, Denies dyspnea on exertion, Denies orthopnea, Denies paroxysmal nocturnal dyspnea and Denies slow heart rate Resp Denies cough, Denies dyspnea and Denies dyspnea on exertion Physical exam (Primary Care) Vital Signs: Last Vital Signs BP 130/70 07/19/24 08:01 BMI result Body Mass Index 27.1 Tobacco/Smoking Status: Tobacco use Status Tobacco use date assessed 01/30/24 07/19/24 08:02 Patient Tobacco Use Status Never used Tobacco 07/19/24 08:02 e-Cigarette/Vaping Use Never Used 07/19/24 08:02 Thrive Assessment: Date of Thrive Assessment Date Thrive assessed 01/30/24 07/19/24 08:02 Resp Effort & Inspection: normal respiratory effort Auscultation: clear to auscultation bilaterally Cardio Jugular venous distension: no JVD Rate: regular rate Rhythm: regular rhythm Heart sounds: S1 normal heart sound present and S2 normal heart sound present Extrem General: Yes full ROM Office Procedures Flu Questionnaire Does the patient have a severe egg allergy?: No Does the patient have severe life threatening allergies?: No Does the patient have a fever or illness today?: No Has the patient ever had Guillain-[place] Syndrome?: No Has the patient ever had any past reaction to a flu shot?: No Immunizations Fluarix Triv [id number] (PF) 45 mcg (15 mcg x 3)/0.5 mL IM syringe Performing Provider: Mel Harris MD [facility] Administered by: SADE Mims on 07/19/24 08:22 Dose Route Admin Location Dispensed Lot Number Expiration Date NDC Review Analyst 0.5 mL IM Left Deltoid 0.5 mL [id number] 04/01/25 [id number] [employer] VIS Given Date VIS Provided VIS Publication Date 07/19/24 Single Vaccine 21 Eligibility Eligibility Date Funding Source Not [facility] Eligible 07/19/24 Private Coding Level of Care Code Est Pt Level 4 (91653) Complex EM visit Add On G2211 Diagnoses Essential hypertension I10 Stage 3b chronic kidney disease N18.32 Chronic kidney disease stage 3 subtype: stage 3b (GFR 30-44) Impaired glucose tolerance R73.02 Leukocytosis D72.829 Time Spent (min) 21 Assessment & Plan Assessment & Plan (1) Essential hypertension: Code(s): I10 - Essential (primary) hypertension Category: Medical Plan: Continue lisinopril and verapamil. Blood pressure goal is equal or less than 130/80. (2) CKD (chronic kidney disease) stage 3, GFR 30-59 ml/min: Code(s): N18.30 - Chronic kidney disease, stage 3 unspecified Category: Medical Qualifiers: Chronic kidney disease stage 3 subtype: stage 3b (GFR 30-44) Qualified Code(s): N18.32 - Chronic kidney disease, stage 3b Plan: Avoid NSAIDs. Keep blood pressure within goal. (3) Impaired glucose tolerance: Code(s): R73.02 - Impaired glucose tolerance (oral) Category: Medical Plan: Follow a low-carbohydrate diet. (4) Leukocytosis: Code(s): D72.829 - Elevated white blood cell count, unspecified Category: Medical Plan: Repeat white blood cells. Orders: Orders Influenza [id number] Immunization Today Z23 - Encounter for immunization Complete Blood Count Auto Diff Today D72.829 - Elevated white blood cell count, unspecified Medications: Refilled lisinopril 10 mg PO DAILY 90 tabs 3RF aspirin 81 mg PO DAILY 90 tabs 3RF verapamil ER 240 mg PO DAILY 90 tabs 3RF Discontinued ezetimibe (Zetia) please get repeat fasting lab work Discontinued Reason: Patient Completed Course 10 mg PO DAILY 30 tabs 0RF
== END 2024-07-19 08:27 | disposition home or self-care (01) ==
PROVIDERS: PCP Internal Medicine; Visit Provider Internal Medicine
DX: I10 Essential (primary) hypertension (principal); N18.32 Chronic kidney disease, stage 3b; R73.02 Impaired glucose tolerance (oral); D72.829 Elevated white blood cell count, unspecified; Z23 Encounter for immunization

== ENCOUNTER → 2024-07-19 07:56 | Outpatient (BNVA) | payer MEDICARE, MEDICAID, SELFPAY | PROVIDERS: PCP Internal Medicine; Visit Provider Internal Medicine | DX: I12.9 Hypertensive chronic kidney disease with stage 1 through stage 4 chronic kidney disease, or unspecified chronic kidney disease (principal); N18.32 Chronic kidney disease, stage 3b; R73.02 Impaired glucose tolerance (oral); D72.829 Elevated white blood cell count, unspecified; Z79.899 Other long term (current) drug therapy; Z23 Encounter for immunization | CPT/HCPCS: 90471; 90656; 99212 ==

== ENCOUNTER → 2024-07-23 07:48 | Outpatient (REF) | payer MEDICARE, MEDICAID, SELFPAY ==
--- NOTE | 2024-07-23 07:50 | CA_ITS ---
Transthoracic Echocardiogram Patient (Last, First, Middle): Tato Wilson R Gender: Male Date of : 1955 Age: 68 Procedure Date: 07/23/2024 Procedure Type: Transthoracic Echocardiogram Location: OP Height: 172.72 cm Weight: 85.73 kg BSA: 2.00 m2 Heart Rate: bpm BP: 128 / 80 mmHg Billing Customer Service Representative: STACY Referring MD: Sania Griffith INDUSTRIAL EDUCATION INSTRUCTOR Symptoms: I77.810 - Thoracic aortic ectasia Study Quality: Good ECG Rhythm: Sinus Conclusions: - The left ventricular systolic function is normal. The visually estimated ejection fraction is between 55-60%. - The basal inferior segment is hypokinetic. - No obvious valvular pathology seen on this study. - There is mild dilatation of the ascending aorta measuring 4.00 cm. Findings Left Ventricle Normal left ventricular cavity size. There is mildly increased left ventricular wall thickness. The left ventricular systolic function is normal. The visually estimated ejection fraction is between 55-60%. E/E prime ratio is >15, consistent with elevated filling pressures. Evidence suggests grade I (mild) diastolic dysfunction. Wall Motion Rest Echo Findings The basal inferior segment is hypokinetic. Right Ventricle Normal right ventricular cavity size and systolic function. Atria Both atria are normal in size. Aortic Valve The aortic valve was not well visualized. There is no aortic valve stenosis. There is no aortic valve regurgitation. Mitral Valve The mitral valve appears normal. There is trace mitral valve regurgitation. There is no mitral valve stenosis. Pulmonic Valve The pulmonic valve is likely normal. Tricuspid Valve The tricuspid valve was not well visualized. There is trace tricuspid valve regurgitation. There is no evidence of pulmonary hypertension. Great Vessels There is mild dilatation of the ascending aorta measuring 4.00 cm. Venous The inferior vena cava is normal in size and collapses less than 50% with inspiration. Pericardium/Pleural There is no evidence of pericardial effusion. Prior Study Comparison No significant change compared to prior study dated: 05/03/2023. Recommendations, Care & Conclusions No obvious valvular pathology seen on this study. Measurements 2D Linear Measurements IVSd: 1.09 0.6-0.9/0.6-1.0 cm LVIDd: 4.64 3.9-5.3/4.2-5.9 cm LVIDd Index: 2.32 2.4-3.2/2.2-3.1 cm/m2 LVIDs: 3.00 2.0-3.6 cm LVPWd: 1.06 0.7-1.1 cm Ao Root: 3.40 2.1-3.5 cm LA Diam: 3.90 2.7-3.8/3.0-4.0 cm LAIDs Index: 1.95 1.5-2.3 cm/m2 LV Mass: 221.68 67-162/88-224 g LV Mass Index: 110.84 43-95/49-115 g/m2 LVOT Diam: 2.10 3.0+(-)1.3 cm 2D Systolic Function EF 4C: 54.60 >55% EF 2C: 56.10 >55% Mitral Valve MV Pk E: 1.08 MV PK A: 1.27 MV Decel Time: 199.00 E/A: 0.90 E'Lateral: 5.44 E'Medial: 3.70 E/E' Med: 29.20 E/E' Lat: 19.90 PHT: 58.00 MVA PHT: 3.79 Decel Richardson: 5.40 Aortic Valve AoV Pk Bud: 1.41 AoV Pk Grad: 8.00 LVOT LVOT Pk Bud: 1.06 LVOT Mn Bud: 0.74 LVOT VTI: 0.24 LVOT Pk Grad: 4.00 LVOT Mn Grad: 3.00 LVOT Diam: 2.10 LVOT Area: 3.46 Diastolic Function MV Pk E: 1.08 MV Pk A: 1.27 E/A: 0.90 E'Medial: 3.70 E/E' Med: 29.20 E' Laterial: 5.44 E/E' Lat: 19.90 Right Ventricle TAPSE (mm): 32.00 TVS' Bud: 12.00 Tricuspid Valve TR Pk Bud: 2.53 TR Pk Grad: 26.00 RA Press: 3.00 RVSP: 29.00 Great Vessels Aorta Ao Root-2D: 3.40 2.0-3.7 cm Ao Asc: 4.10 2.1-3.4 cm Pulmonary Valve PV Pk Bud: 1.15 Peak PV Grad: 5.00 Updated in Other Vendor System with Status of Final Carlito Morales MD electronically signed on 07/23/2024 12:24:17 PM with status of Final
== END ==
LOC: HO.CARD 07:48
PROVIDERS: PCP Internal Medicine; Visit Provider Nurse Practitioner
DX: I77.810 Thoracic aortic ectasia (principal); I10 Essential (primary) hypertension; I25.10 Atherosclerotic heart disease of native coronary artery without angina pectoris
CPT/HCPCS: 93306

== ENCOUNTER → 2024-07-23 07:50 | Outpatient (BNV) | payer MEDICARE, MEDICAID, SELFPAY | PROVIDERS: PCP Internal Medicine; Visit Provider Internal Medicine | DX: I51.89 Other ill-defined heart diseases (principal); I77.810 Thoracic aortic ectasia | CPT/HCPCS: 93306 ==

== ENCOUNTER 2024-08-21 06:44 | Outpatient (REF) | payer MEDICARE, MEDICAID, SELFPAY ==
[2024-08-21 06:55] LABS: MANUAL DIFF FLAG NO
[2024-08-21 07:27] LABS: Basophils Absolute Auto 0.1 X10*3/uL (0.0-0.2); Basophils Percent Auto 0.9 % (0-2); Eosinophils Absolute Auto 1.2 X10*3/uL (0.0-0.4); Eosinophils Percent Auto 11.9 % (0-4); Hemoglobin 14.7 g/dl (14.0-18.0); Imm Gran Abs Auto 0.03 X10*3/uL (0.00-0.03); Imm Gran Pct Auto 0.3 % (0.0-0.4); Lymphocytes Absolute Auto 2.8 X10*3/uL (1.2-4.9); Lymphocytes Percent Auto 28.5 % (20-40); Mean Corpuscular HGB Conc 33.4 g/dl (31.0-36.0); Mean Corpuscular Hemoglobin 30.3 pg (27.0-33.0); Mean Corpuscular Volume 90.7 fL (80.0-98.0); Mean Platelet Volume 11.3 fL (9.4-12.4); Monocytes Absolute Auto 0.6 X10*3/uL (0.1-1.2); Monocytes Percent Auto 5.9 % (2-11); Neutrophils Absolute Auto 5.1 x10*3/uL (2.0-8.3); Neutrophils Percent Auto 52.5 % (45-73); Platelet Count 219 X10*3/uL (160-400); Red Blood Count 4.85 X10*6/uL (4.60-5.80); Red Cell Distribution Width 12.2 % (11.0-16.0); White Blood Count 9.7 X10*3/uL (4.8-10.8)
[2024-08-21 07:42] LABS: Alanine Aminotransferase 29 U/L (0-40); Albumin Level 4.2 g/dL (3.5-5.0); Alkaline Phosphatase 86 U/L (39-117); Anion Gap 11 (12-20); Aspartate Amino Transferase 25 U/L (5-37); Bilirubin Total 0.8 mg/dL (0.0-1.0); Blood Urea Nitrogen 20 mg/dL (9-16); Calcium 9.7 mg/dL (8.4-10.2); Carbon Dioxide 28 mmol/L (22-29); Chloride 102 mmol/L (96-108); Cholesterol 174 mg/dL (<200); Estimated Glomerular Filt Rate 48; Glucose Fasting 135 mg/dL (60-99); Glucose Random 133 mg/dL (60-115); HDL Cholesterol 41 mg/dL (>40); LDL Cholesterol Calculated 116 mg/dL (<100); Potassium 4.4 mmol/L (3.3-5.1); Sodium 137 mmol/L (135-145); Total Protein 7.7 g/dL (6.5-8.0); Triglycerides 88 mg/dL (<150)
== END 2024-08-21 06:45 | disposition home or self-care (01) ==
LOC: HO.LAB 06:44
PROVIDERS: Nurse Practitioner; PCP Internal Medicine; Visit Provider Internal Medicine
DX: I25.10 Atherosclerotic heart disease of native coronary artery without angina pectoris (principal); R73.02 Impaired glucose tolerance (oral); D72.829 Elevated white blood cell count, unspecified; E78.5 Hyperlipidemia, unspecified
CPT/HCPCS: 36415; 80048; 80053; 80061; 85025

== ENCOUNTER 2024-09-04 07:53 | Outpatient (AMB) | payer MEDICARE, MEDICAID, SELFPAY ==
--- NOTE | 2024-09-04 07:55 | A.OFFPC_ITS ---
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 Accompanied by: Self / Same As Patient Allergies Tetanus Vaccines and Toxoid [TETANUS VACCINES & TOXOID] Allergy (Severe, Verified 09/04/24 08:05) SWELLING rosuvastatin [From Crestor] Adverse Reaction (Intermediate, Verified 09/04/24 08:05) body aches Medication List - Last Reconciled 09/04/24 by Mel Harris MD aspirin 81 mg PO DAILY doxazosin 8 mg PO BEDTIME 90 days furosemide 20 mg PO DAILY lisinopril 10 mg PO DAILY verapamil ER 240 mg PO DAILY Tobacco use date assessed: 01/30/24 Fall risk assessment: No Falls in past year Last assessed Fall Risk: 09/04/24 Dental Screening Dental Screen Date: 09/04/24 Did you have a dental visit in the last 12 months?: Yes Did you have a dental problem in the last 6 months where you did not have access to dental care?: No Was dental information given to patient?: Patient has dentist HPI HPI Comments History of Present Illness Details This is a 68-year-old male that comes for his physical exam. He has chronic kidney disease stage 3 with a GFR of 48. Has elevated fasting blood glucose and A1c was 6 %. Cologuard done 2022 was negative and next Cologuard should be 2025. Will have pneumonia vaccine today. Complains of right shoulder pain with limited elevation and abduction that has been present for few months with no previous trauma. Will order x-ray and refer him to ortho. [facility] Medical History (Updated 09/04/24 @ 08:26 by Mel Harris MD) Left knee pain CKD (chronic kidney disease) stage 3, GFR 30-59 ml/min Essential hypertension Ascending aorta dilatation Renal cyst Renal stone Anxiety Other chronic pain Right anterior knee pain Left anterior knee pain Meatal stenosis Hypospadias, unspecified Elevated blood pressure reading BPH loc w urin obs/LUTS Surgical History Anal fistula History of inguinal hernia repair Family History Father No problems noted. Mother Stroke Maternal Grandmother Diabetes Brother Pancreatic cancer Maternal Grandmother Lung cancer Maternal Grandfather Lung cancer Social History Housing: Apartment Alcohol intake: current Alcohol intake frequency: a few times a month Alcohol type: beer Patient Tobacco Use Status: Never used Tobacco e-Cigarette/Vaping Use: Never Used Second Hand Smoke Exposure: No service: No Current occupational status: disabled Current occupation: right hand dominant Cognitive needs: No Hearing needs: No Vision needs: No Questionnaire PHQ-9 Over the last 2 weeks, how often have you been bothered by any of the following problems? 1. Little interest or pleasure in doing things: not at all 2. Feeling down, depressed, or hopeless: not at all 3. Trouble falling or staying asleep, or sleeping too much: not at all 4. Feeling tired or having little energy: not at all 5. Poor appetite or overeating: not at all 6. Feeling bad about yourself - or that you are a failure or have let yourself or your family down: not at all 7. Trouble concentrating on things, such as reading the newspaper or watching television: not at all 8. Moving or speaking so slowly that other people could have noticed. Or the opposite - being so fidgety or restless that you have been moving around a lot more than usual: not at all 9. Thoughts that you would be better off or of hurting yourself in some way: not at all Total score: 0 Depression Screening Interpretation: Negative Depression Screening Done: Yes 31892 - PHQ-9 Billing: Yes Source: Developed by Drs. Juarez Rosales, Suzie Saldivar, Lamont Livingston and colleagues, with an educational zehra from [employer]. Thrive Questionnaire Date Thrive assessed: 08/28/24 I am a: Patient What is your living situation today?: I have a steady place to live Within the past 12 months, did the food you bought not last and you didn't have the money to get more?: Often true Within the past 12 months, did you worry whether your food would run out before you got money to buy more?: Often true Do you have trouble paying for medicines?: No Do you have trouble getting transportation to medical appointments?: No Do you have trouble paying your heating and electricity bill?: No Do you have trouble taking care of your child, family member or friend?: No Do you have trouble with day-to-day activities such as bathing, preparing meals, shopping, managing finances, etc.?: No Are you currently unemployed and looking for a job?: No Are you interested in more education?: No Please select the resources that you would like help with: None Currently or been in a relationship where the following occur: No concerns reported THRIVE Score: 2 AUDIT C Alcohol Use Questionnaire (AUDIT-C) 1. How often do you have a drink containing alcohol?: Monthly or less 2. How many drinks containing alcohol do you have on a typical day when you are drinking?: 1 or 2 3. How often do you have six or more drinks on one occasion?: Never Total Score: 1 Score Reviewed/Action Taken: No TRI-7 AMB Questionnaire TRI-7 Date TRI - 7 assessed: 09/04/24 Feeling nervous, anxious, or on edge: 0 = Not at all Not being able to stop or control worryin = Not at all Worrying too much about different things: 0 = Not at all Trouble relaxin = Not at all Being so restless that it is hard to sit still: 0 = Not at all Becoming easily annoyed or irritable: 0 = Not at all Feeling afraid as if something awful might happen: 0 = Not at all Total TRI-7 score (0-4 normal; 5-9 mild; 10-14 moderate; 15-21 severe): 0 Source: Developed by Drs. Juarez Rosales, Suzie Saldivar, Lamont Livingston and colleagues, with an educational zehra from [employer]. TRI-7 Assessment Billing TRI-7 Assessment Tool: TRI-7 Assessment 03891 Review of Systems Const All systems reviewed & are unremarkable except as noted in HPI and below Card Denies chest pain at rest, Denies chest pain with activity, Denies edema, Denies irregular heart rhythm, Denies claudication, Denies dyspnea, Denies dyspnea on exertion, Denies orthopnea, Denies paroxysmal nocturnal dyspnea and Denies slow heart rate Resp Denies cough, Denies dyspnea and Denies dyspnea on exertion GI Denies abdominal pain, Denies change in bowel habits, Denies excessive flatus, Denies nausea and Denies vomiting Denies urinary hesitancy, Denies urinary incontinence and Denies urinary urgency Musc Denies abnormal gait, Denies atrophy, Denies deformity, Reports arthralgias and Denies limited range of motion Skin/Breast Denies bleeding lesions, Denies changing lesions and Denies rash Neuro Denies abnormal gait and Denies lack of coordination Physical exam (Primary Care) Vital Signs: Last Vital Signs BP 120/70 09/04/24 08:00 BMI result Body Mass Index 27.0 Tobacco/Smoking Status: Tobacco use Status Tobacco use date assessed 01/30/24 09/04/24 07:57 Patient Tobacco Use Status Never used Tobacco 09/04/24 07:57 e-Cigarette/Vaping Use Never Used 09/04/24 07:57 PHQ-9: PHQ-9 Score PHQ-9: Total score 0 09/04/24 08:08 Depression Screening Interpretation: Negative Thrive Assessment: Date of Thrive Assessment Date Thrive assessed 08/28/24 09/04/24 07:57 Currently or been in a relationship where the following occur: No concerns reported [facility] Head: Yes normal to inspection, Yes normocephalic and Yes atraumatic Ears: external ears normal Eyes General: appearance normal, both eyes and all related structures Eyelids: Yes eyelids normal Conjunctivae: conjunctivae normal Neck Neck: Yes normal visual inspection and Yes supple Resp Effort & Inspection: normal respiratory effort Auscultation: clear to auscultation bilaterally Cardio Jugular venous distension: no JVD Rate: regular rate Rhythm: regular rhythm Heart sounds: S1 normal heart sound present and S2 normal heart sound present GI Inspection: Yes normal to inspection Palpation (GI): Soft to palpation and nontender Auscultation: normal bowel sounds Skin General skin exam: no rashes or lesions noted Neuro General: no focal motor deficits Extrem General: Yes full ROM Right upper extremity: shoulder/upper arm Details: abnormal ROM Details: pain with active ROM Details: in ABduction and in extension Psych Appearance: grossly normal Results AMB Hemoglobin A1c AMB Hemoglobin A1c 6.0 % Last Edit by SADE Mims on 09/04/24 08:2 4 Immunizations pneumoc 20-areli conj-dip cr(PF) 0.5 mL IM syringe Performing Provider: Mel Harris MD [facility] Administered by: SADE Mims on 09/04/24 08:22 Dose Route Admin Location Dispensed Lot Number Expiration Date ND Online Content Coordinator 0.5 mL IM Left Deltoid 0.5 mL [id number] 10/03/25 7983-6846-22 WYETH/PFIZER VIS Given Date VIS Provided VIS Publication Date 09/04/24 Single Vaccine 21 Eligibility Eligibility Date Funding Source Not [facility] Eligible 09/04/24 Private Coding Level of Care Code Est Pt Level 3 (91718) Est Pt Prev Care >65y(14024) Diagnoses Physical exam Z00.00 Chronic right shoulder pain M25.511; G89.29 Chronicity: chronic Stage 3b chronic kidney disease N18.32 Chronic kidney disease stage 3 subtype: stage 3b (GFR 30-44) Additional Codes PHQ-9 - 63703 - PHQ-9 Billing: Yes ([id number]) TRI-7 Assessment Billing - TRI-7 Assessment Tool: TRI-7 Assessment 17057 ([id number]) Time Spent (min) 33 Assessment & Plan Assessment & Plan (1) Physical exam: Code(s): Z00.00 - Encounter for general adult medical examination without abnormal findings Category: Medical Plan: Repeat in a year. (2) Right shoulder pain: Code(s): M25.511 - Pain in right shoulder Category: Medical Qualifiers: Chronicity: chronic Qualified Code(s): M25.511 - Pain in right shoulder; G89.29 - Other chronic pain Plan: X-ray ordered. Referred to Ortho. (3) CKD (chronic kidney disease) stage 3, GFR 30-59 ml/min: Code(s): N18.30 - Chronic kidney disease, stage 3 unspecified Category: Medical Qualifiers: Chronic kidney disease stage 3 subtype: stage 3b (GFR 30-44) Qualified Code(s): N18.32 - Chronic kidney disease, stage 3b Plan: Avoid NSAIDs. Keep blood pressure less than 130/80. Orders: Orders Pneumococcal 20 Immunization Today Z23 - Encounter for immunization AMB Hemoglobin A1c Today R73.02 - Impaired glucose tolerance (oral) XR shoulder RT 1V Today M25.511 - Pain in right shoulder Comprehensive [place]. Panel Fast 4 Months R73.02 - Impaired glucose tolerance (oral) Referrals Orthopedics Referral M25.511 - Pain in right shoulder Medications: Refilled verapamil ER 240 mg PO DAILY 90 tabs 3RF
[2024-09-04 08:00] VITALS: BP 120/70; BMI 27.0
== END 2024-09-04 08:22 | disposition home or self-care (01) ==
PROVIDERS: PCP Internal Medicine; Visit Provider Internal Medicine
DX: Z00.00 Encounter for general adult medical examination without abnormal findings (principal); M25.511 Pain in right shoulder; G89.29 Other chronic pain; N18.32 Chronic kidney disease, stage 3b; R73.02 Impaired glucose tolerance (oral); Z23 Encounter for immunization

== ENCOUNTER → 2024-09-04 07:53 | Outpatient (BNVA) | payer MEDICARE, MEDICAID, SELFPAY | PROVIDERS: PCP Internal Medicine; Visit Provider Internal Medicine | DX: Z00.00 Encounter for general adult medical examination without abnormal findings (principal); Z23 Encounter for immunization; M25.511 Pain in right shoulder; G89.29 Other chronic pain; N18.32 Chronic kidney disease, stage 3b; R73.02 Impaired glucose tolerance (oral) | CPT/HCPCS: 83036; 90471; 90677; 96127; 99212; 99397 ==

== ENCOUNTER 2024-10-08 15:08 | Outpatient (AMB) | payer MEDICARE, MEDICAID, SELFPAY ==
--- NOTE | 2024-10-08 15:10 | A.OFFVIS_ITS ---
Vital Signs 10/08/24 15:20 Height 5 ft 10 in Weight 188 lb BMI 27.0 Intake Visit Reasons: Newprob-Pain in right shoulder Intake Note: Tato is a 68 year old male who presents today for a new problem of right shoulder pain that began about 1 year ago. Patient describes pain localized to is right deltoid, occasionally radiating down to his elbow. He also experiences right shoulder blade pain with certain movements. Patient states he is able to bring his arm above his head but after a while it becomes weak and needs help to bring it back down. He denies injuries or surgeries to the right shoulder. Patient reports this is the first time his shoulder is evaluated. He is not taking anything for pain presently. 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 Allergies Tetanus Vaccines and Toxoid [TETANUS VACCINES & TOXOID] Allergy (Severe, Verified 10/08/24 15:20) SWELLING rosuvastatin [From Crestor] Adverse Reaction (Severe, Verified 10/08/24 15:20) visual disturbance atorvastatin Adverse Reaction (Intermediate, Verified 10/08/24 15:20) body aches Medication List - Last Reconciled 10/08/24 by Paula Monique PA-C aspirin 81 mg PO DAILY doxazosin 8 mg PO BEDTIME 90 days evolocumab (Repatha SureClick) 140 mg subcut Q2W furosemide 20 mg PO DAILY lisinopril 10 mg PO DAILY verapamil ER 240 mg PO DAILY HPI HPI Newprob-Pain in right shoulder: Details: 68-year-old gentleman presents to the office today for pain in the right shoulder. He has been having pain for several months which is worse with lifting. He also has pain at night and it radiates down his arm. No injury. No treatment to date. [facility] Medical History Left knee pain CKD (chronic kidney disease) stage 3, GFR 30-59 ml/min Essential hypertension Ascending aorta dilatation Renal cyst Renal stone Anxiety Other chronic pain Right anterior knee pain Left anterior knee pain Meatal stenosis Hypospadias, unspecified Elevated blood pressure reading BPH loc w urin obs/LUTS Surgical History Anal fistula History of inguinal hernia repair Family History Father No problems noted. Mother Stroke Maternal Grandmother Diabetes Brother Pancreatic cancer Maternal Grandmother Lung cancer Maternal Grandfather Lung cancer Social History Housing: Apartment Alcohol intake: current Alcohol intake frequency: a few times a month Alcohol type: beer Patient Tobacco Use Status: Never used Tobacco e-Cigarette/Vaping Use: Never Used Second Hand Smoke Exposure: No service: No Current occupational status: disabled Current occupation: right hand dominant Cognitive needs: No Hearing needs: No Vision needs: No Review of Systems Const All systems reviewed & are unremarkable except as noted in HPI and below Physical Exam Vital Signs: BMI result Body Mass Index 27.0 Extrem Other: Right shoulder normal to inspection. Tenderness over the bicipital groove and along deltoid region of the shoulder. FF to 175, ER to 90, IR to S1. 5/5 RTC strength, negative lemos, positive cross body abduction. NVI. Office Procedures AMB Joint Injection/Aspiration Joint Injection/Aspiration Primary Site: right shoulder Prep: site was prepped using aseptic technique, ethochloride spray was applied and injection warnings given Injected: 80 mg of, DepoMedrol, with 8 mL of, 1% plain lidocaine and in the subcromial space Approach Used: posterolateral Procedure: The patient tolerated the procedure well and there was some relief with the local anesthesia Coding 40524 - Glenohumeral/Tronchanteric Bursa/Intraarticular Procedure code (CPT) selection complete Results Reviewed Results Reviewed: xrays right shouder 04/2023 IMPRESSION: Mild degenerative change in the right shoulder. Assessment & Plan Assessment & Plan (1) Right shoulder tendonitis: Code(s): M77.8 - Other enthesopathies, not elsewhere classified Category: Medical Plan: We discussed options today, which include steroid injection. The patient did consent to move forward with the injection, which was tolerated well.? I recommended rest, ice and elevation and OTC antiinflammatories prn for discomfort. If symptoms persist over the next 6-8 weeks, they will contact our office, otherwise, prn Orders: Orders PT Evaluation and Treatment Today M77.8 - Other enthesopathies, not elsewhere classified Coding Level of Care Code Est Pt Level 3 (55176) Complex EM visit Add On G2211 Diagnoses Right shoulder tendonitis M77.8 CPT Codes Coding - Joint 7: 15238 - Glenohumeral/Tronchanteric Bursa/Intraarticular ([id number])
[2024-10-08 15:20] VITALS: BMI 27.0
== END 2024-10-08 16:07 | disposition home or self-care (01) ==
PROVIDERS: PCP Internal Medicine; Visit Provider Physician Assistant
DX: M77.8 Other enthesopathies, not elsewhere classified (principal)
CPT/HCPCS: 20610; 99213

== ENCOUNTER → 2024-10-08 15:08 | Outpatient (BNVA) | payer MEDICARE, MEDICAID, SELFPAY | PROVIDERS: PCP Internal Medicine; Visit Provider Physician Assistant | DX: M77.8 Other enthesopathies, not elsewhere classified (principal) | CPT/HCPCS: 20610; 99212; J1010; J2003 ==

== ENCOUNTER 2024-10-24 13:02 | Outpatient (REF) | payer MEDICARE, MEDICAID, SELFPAY ==
--- NOTE | ~2024-10-24 | XR_ITS ---
EXAMINATION: XR ABDOMEN 1 VIEW (KUB) HISTORY: N20.0 - Calculus of kidney COMPARISON: There are no prior studies for comparison. FINDINGS: Three supine views of the abdomen are submitted. The bowel gas pattern is unremarkable, without evidence of mechanical obstruction. No abnormal calcifications are identified. There are no abnormal soft tissue masses. There is degenerative disc disease of the spine. XR/XR KUB IMPRESSION: No suspicious calcifications are identified. Electronically signed by: Juarez Lock MD 10/25/2024 08:18 AM MARY
--- OUTSIDE RECORDS SUMMARY | 2024-10-24 16:02 | XMS_ITS | Clinical Summary ---
Author Organization [facility] Facility Address [address] [address] Care Team Providers Care Respiratory Scientist Name Role Phone Mel Lane MD Primary Care Provider Allergies Active Allergy Reactions Criticality Noted Date [...] TODOS LOS D 01/22/2021 Active aspirin (ST IRMA) 81 MG EC tablet Take 81 mg [...] [place] Care Teams Respiratory Scientist Relationship Specialty Start Date End Date Mel Lane MD [address] [place] [address] PCP - General 10/13/20
== END 2024-10-24 13:03 | disposition home or self-care (01) ==
LOC: HO.XRAY 13:02
PROVIDERS: PCP Internal Medicine; Visit Provider Urology
DX: N20.0 Calculus of kidney (principal); N40.1 Benign prostatic hyperplasia with lower urinary tract symptoms; Z13.9 Encounter for screening, unspecified
CPT/HCPCS: 51798; 74018; 81003; 99212

== ENCOUNTER 2024-10-24 13:02 | Outpatient (AMB) | payer MEDICARE, MEDICAID, SELFPAY ==
--- NOTE | 2024-10-24 13:05 | A.OFFVIS_ITS ---
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 Guyanese speaker. He is a patient of Dr. Harris. He is seen for the following urologic conditions - lower urinary tract symptoms - renal cyst Guyanese translation provided in office by qualified territory sales manager medical Yearly follow-up 0 cc on PVR P.r.n. follow-up Describes going through airport security and being told he has a foreign body in his pelvis. Organize KUB Lower urinary tract symptoms Underwent laser prostate 2019 Continues to do well with bladder emptying Urinary parameters nocturia x1 Doxazosin listed is medication but patient denies he is taking PSA 10/27 1.7 Continue yearly follow-up Renal cysts Stable Bilateral Imaging - 11/24 2 cm renal cyst bilateral - 03/25 bilateral stable 2.5 cm cyst. Radiology recommend no further follow-up. [facility] Medical History Left knee pain CKD (chronic kidney disease) stage 3, GFR 30-59 ml/min Essential hypertension Ascending aorta dilatation Renal cyst Renal stone Anxiety Other chronic pain Right anterior knee pain Left anterior knee pain Meatal stenosis Hypospadias, unspecified Elevated blood pressure reading BPH loc w urin obs/LUTS Surgical History Anal fistula History of inguinal hernia repair Family History Father No problems noted. Mother Stroke Maternal Grandmother Diabetes Brother Pancreatic cancer Maternal Grandmother Lung cancer Maternal Grandfather Lung cancer Social History Housing: Apartment Alcohol intake: current Alcohol intake frequency: a few times a month Alcohol type: beer Patient Tobacco Use Status: Never used Tobacco e-Cigarette/Vaping Use: Never Used Second Hand Smoke Exposure: No service: No Current occupational status: disabled Current occupation: right hand dominant Cognitive needs: No Hearing needs: No Vision needs: No Review of Systems Const Denies chills and Denies fever(s) Card Reports no additional complaints and Denies syncope Resp Denies cough GI Denies abdominal pain and Denies heartburn Reports as per HPI and Denies change in libido Neuro Denies syncope Psych Denies change in libido Endo Denies change in libido Physical Exam Const General: cooperative, healthy appearing, comfortable and no acute distress Orientation/consciousness: patient oriented x3 HEENT Face and sinus: Yes normal facial exam Mouth: moist mucous membranes Neck Neck: Yes normal visual inspection, Yes full ROM and Yes trachea midline Chest Chest palpation & inspection: normal inspection of the chest Resp Effort & Inspection: normal respiratory effort, able to speak in complete sentences and no respiratory distress GI Inspection: Yes normal to inspection Back/Spine/Pelvis Cervical Spine: normal cervical lordosis Thoracic/Lumbar Spine: thoracic and lumbar spine normal to inspection Skin General skin exam: no rashes or lesions noted Neuro General: patient oriented x3, gait normal, tone normal and moves all extremities Extrem General: Yes normal to inspection and Yes capillary refill normal Office Procedures Post Void Residual Post Residual Void Post Void Residual (PVR): 2 03805-Nyhl Void Residual by ultrasound Results AMB Urinalysis, Automated UA Leukoctes 0 Goran/uL Last Edit by ELÍAS Putnam on 10/24/24 13:17 UA Nitrite Negative Last Edit by ELÍAS Putnam on 10/24/24 13:17 UA Urobilinogen 0.2 mg/dL Last Edit by ELÍAS Putnam on 10/24/24 13:1 7 UA Protein 15 mg/dL Last Edit by ELÍAS Putnam on 10/24/24 13:17 UA pH 6.0 Last Edit by ELÍAS Putnam on 10/24/24 13:17 UA Blood 0 Jerman/uL Last Edit by ELÍAS Putnam on 10/24/24 13:17 UA Specific [place] 1.015 Last Edit by ELÍAS Putnam on 10/24/24 13: 17 UA Ketone Negative Last Edit by ELÍAS Putnam on 10/24/24 13:17 UA Bilirubin 0 mg/dL Last Edit by ELÍAS Putnam on 10/24/24 13:17 UA Glucose 0 mg/dL Last Edit by ELÍAS Putnam on 10/24/24 13:17 Results Reviewed Results Reviewed: Laboratory Last Values Urine pH (Auto) 6.0 10/24/24 13:17 Specific [place] (Auto) 1.015 10/24/24 13:17 Urine Protein (Auto) 15 mg/dL 10/24/24 13:17 Glucose (UA)(Auto) 0 mg/dL 10/24/24 13:17 Urine Ketones (Auto) Negative 10/24/24 13:17 Urine Blood (Auto) 0 Jerman/uL 10/24/24 13:17 Urine Nitrite (Auto) Negative 10/24/24 13:17 Urine Bilirubin (Auto) 0 mg/dL 10/24/24 13:17 Urine Urobilinogen (Auto) 0.2 mg/dL 10/24/24 13:17 Leukocyte Esterase (Auto) 0 Goran/uL 10/24/24 13:17 Assessment & Plan Assessment & Plan (1) BPH loc w urin obs/LUTS: Code(s): N40.1 - Benign prostatic hyperplasia with lower urinary tract symptoms Category: Medical (2) Renal stone: Code(s): N20.0 - Calculus of kidney Category: Medical Plan KUB today Orders: Orders AMB Urinalysis Automated Today Z13.9 - Encounter for screening, unspecified XR KUB Today N20.0 - Calculus of kidney Patient Instructions: Imaging studies, laboratory and physical exam results were discussed and reviewed in detail. No major barriers to patient understanding were identified. An opportunity to ask questions regarding the treatment plan was provided. All questions were answered. The patient expressed understanding and agreement with the above treatment plan. The patient is aware they should contact our office by phone for worsening of their current condition or the appearance of new urologic symptoms. Compliance is encouraged with any medications and followup testing that is ordered. It is a privilege to participate in the urologic care of your patient. If you have any questions or concerns regarding treatment for the above conditions, or other urologic issues, please do not hesitate to contact me. The office telephone contact is [phone]. This note is constructed using voice recognition software. While every effort has been made to ensure accuracy weigher operator errors may have been included. Yours sincerely, Dr Yobani Martin MD, [facility] - Urology Providers of Expert, Compassionate Care for the Genitourinary System Coding Level of Care Code Est Pt Level 4 (96825) Diagnoses BPH loc w urin obs/LUTS N40.1 Renal stone N20.0 CPT Codes Post Residual Void - PVR CPT Code: 62207-Heey Void Residual by ultrasound ([id number])
--- OUTSIDE RECORDS SUMMARY | 2024-10-24 14:57 | XMS_ITS | Clinical Summary ---
Author Organization [facility] Facility Address [address] [address] Care Team Providers Care Aircraft Structural Design Engineer Name Role Phone Mel Lane MD Primary Care Provider [phone] Allergies Active Allergy Reactions Criticality Noted Date Comments Tetanus Toxoid Other (see comments) 02/01/2021 Medications verapamil SR (CALAN-SR) 240 MG CR tablet Comments: Filled Date: Jan 28 2020 6:54AM Patient Notes: TAKE 1 TABLET BY MOUTH ONCE A DAY Duration: 30 10/10/2019 Active furosemide (LASIX) 20 MG tablet Comments: Filled Date: Sep 08 2018 10:07AM Patient Notes: TAKE 1 TABLET BY MOUTH ONCE A DAY Duration: 30 09/08/2018 Active lisinopril (PRINIVIL,ZESTR IL) 10 MG tablet TOME CHICHI TABLETA TODOS LOS D 01/22/2021 Active aspirin (ST RIMA) 81 MG EC tablet Take 81 mg by mouth 1 (one) time each day Active doxazosin (CARDURA) 4 MG tablet Take 1 tablet (4 mg total) by mouth 1 (one) time each day 90 tablet 11 07/01/2022 Active Active Problems Problem Noted Date Diagnosed Date Stage 3a chronic kidney disease 02/05/2021 Renal osteodystrophy 02/05/2021 Chronic kidney disease stage 3 02/01/2021 Essential hypertension 02/01/2021 Family History Medical History Relation Comments Hypertension Mother Relation Status Comments Mother Social History Tobacco Use Types Packs/Day Years Used Date Smoking Tobacco: Never Tobacco Cessation:Counseling Given: Not Answered Alcohol Use Standard Drinks/Week Comments Yes 0 (1 standard drink = 0.6 oz pure alcohol) Alcoholic Drinks/day: Occasional social drink Sex and Gender Information Value Date Recorded Sex Assigned at Not on file Legal Sex Male 4:45 PM EST Gender Identity Not on file Sexual Orientation Not on file Last Filed Vital Signs Vital Sign Reading Time Taken Comments Blood Pressure 138/80 04/04/2023 1:13 PM EDT Pulse 77 04/04/2023 1:13 PM EDT Temperature - - Respiratory Rate - - Oxygen Saturation 98% 04/04/2023 1:13 PM EDT Inhaled Oxygen Concentration - - Weight 86.9 kg (191 lb 9.6 oz) 04/04/2023 1:13 P M EDT Height 177.8 cm (5' 10 ) 07/28/2020 12:00 PM EDT Body Mass Index 27.49 07/28/2020 12:00 PM EDT Plan of Treatment Health Maintenance Due Date Last Done Comments Pneumococcal Vaccine: 65+ Ye ars (1 of 2 - PCV) 1961 Colorectal Cancer Screening: Annual FOBT 12/25/2003 Colorectal Cancer Screening: Colonoscopy 12/25/2003 Colorectal Cancer Screening: Sigmoidoscopy 12/25/2003 Influenza Vaccine (#1) 2024 Hepatitis B Vaccine Aged Out No longe r eligible based on patient's age to complete this topic Insurance [place] Care Teams Aircraft Structural Design Engineer Relationship Specialty Start Date End Date Mel Lane MD [address] [place] [address] PCP - General 10/13/20
== END 2024-10-24 13:38 | disposition home or self-care (01) ==
PROVIDERS: PCP Internal Medicine; Visit Provider Urology
DX: N40.1 Benign prostatic hyperplasia with lower urinary tract symptoms (principal); N20.0 Calculus of kidney; Z13.9 Encounter for screening, unspecified
CPT/HCPCS: 99214

== ENCOUNTER → 2024-10-24 13:53 | Outpatient (BNV) | payer MEDICARE, MEDICAID, SELFPAY | PROVIDERS: PCP Internal Medicine; Visit Provider Radiology Diagnostic Radiology | DX: N20.0 Calculus of kidney (principal) | CPT/HCPCS: 74018 ==

== ENCOUNTER → 2024-11-08 15:03 | Outpatient (BNVA) | payer MEDICARE, MEDICAID, SELFPAY | PROVIDERS: PCP Internal Medicine; Visit Provider Internal Medicine | DX: I25.10 Atherosclerotic heart disease of native coronary artery without angina pectoris (principal); I77.810 Thoracic aortic ectasia; I12.9 Hypertensive chronic kidney disease with stage 1 through stage 4 chronic kidney disease, or unspecified chronic kidney disease; N18.9 Chronic kidney disease, unspecified | CPT/HCPCS: 93005; 99212 ==

== ENCOUNTER 2024-11-21 12:56 | Outpatient (AMB) | payer MEDICARE, MEDICAID, SELFPAY ==
--- NOTE | 2024-11-21 13:05 | MHC.OFFVIS ---
Intake Visit Reasons: 1M KUB/PVR(set) Intake Note: Patient is present for 1M KUB/PVR Urology Medication:DOXAZOSIN Antibiotic Allergy:ROSUVASTATIN, ATROVASTATIN Blood Thinner:ASPIRIN TODAY'S PVR:0ML'S Ssis Etl Developer Required: No Allergies Tetanus Vaccines and Toxoid [TETANUS VACCINES & TOXOID] Allergy (Severe, Verified 11/21/24 13:07) SWELLING rosuvastatin [From Crestor] Adverse Reaction (Severe, Verified 11/21/24 13:07) visual disturbance atorvastatin Adverse Reaction (Intermediate, Verified 11/21/24 13:07) body aches HPI Comments Details: Tato is a pleasant male. Palauan speaker. He is a patient of Dr. Harris. He is seen for the following urologic conditions - lower urinary tract symptoms - renal cyst Palauan translation provided in office by qualified medical claims processor Yearly follow-up 0 cc on PVR P.r.n. follow-up Describes going through airport security and being told he has a foreign body in his pelvis. KUB normal Continues with doxazosin 12 month follow-up PSA and PVR Lower urinary tract symptoms Underwent laser prostate 2019 Continues to do well with bladder emptying Urinary parameters nocturia x1 Doxazosin listed is medication but patient denies he is taking PSA 10/27 1.7 Continue yearly follow-up Renal cysts Stable Bilateral Imaging - 11/24 2 cm renal cyst bilateral - 03/25 bilateral stable 2.5 cm cyst. Radiology recommend no further follow-up. [facility] Medical History Left knee pain CKD (chronic kidney disease) stage 3, GFR 30-59 ml/min Essential hypertension Ascending aorta dilatation Renal cyst Renal stone Anxiety Other chronic pain Right anterior knee pain Left anterior knee pain Meatal stenosis Hypospadias, unspecified Elevated blood pressure reading BPH loc w urin obs/LUTS Surgical History Anal fistula History of inguinal hernia repair Family History Father No problems noted. Mother Stroke Maternal Grandmother Diabetes Brother Pancreatic cancer Maternal Grandmother Lung cancer Maternal Grandfather Lung cancer Social History (Reviewed 11/08/24 @ 15:12 by CLAUDE Gomez Housing: Apartment Alcohol intake: current Alcohol intake frequency: a few times a month Alcohol type: beer Patient Tobacco Use Status: Never used Tobacco e-Cigarette/Vaping Use: Never Used Second Hand Smoke Exposure: No service: No Current occupational status: disabled Current occupation: right hand dominant Cognitive needs: No Hearing needs: No Vision needs: No Review of Systems Const Denies chills and Denies fever(s) Card Reports no additional complaints and Denies syncope Resp Denies cough GI Denies abdominal pain and Denies heartburn Reports as per HPI and Denies change in libido Neuro Denies syncope Psych Denies change in libido Endo Denies change in libido Physical Exam Const General: cooperative, healthy appearing, comfortable and no acute distress Orientation/consciousness: patient oriented x3 HEENT Face and sinus: Yes normal facial exam Mouth: moist mucous membranes Neck Neck: Yes normal visual inspection, Yes full ROM and Yes trachea midline Chest Chest palpation & inspection: normal inspection of the chest Resp Effort & Inspection: normal respiratory effort, able to speak in complete sentences and no respiratory distress GI Inspection: Yes normal to inspection Back/Spine/Pelvis Cervical Spine: normal cervical lordosis Thoracic/Lumbar Spine: thoracic and lumbar spine normal to inspection Skin General skin exam: no rashes or lesions noted Neuro General: patient oriented x3, gait normal, tone normal and moves all extremities Extrem General: Yes normal to inspection and Yes capillary refill normal Office Procedures Post Void Residual Post Residual Void Post Void Residual (PVR): 0 86200-Dshv Void Residual by ultrasound Results AMB Urinalysis, Automated UA Leukoctes 0 Goran/uL Last Edit by ELÍAS Putnam on 11/21/24 13:17 UA Nitrite Negative Last Edit by ELÍAS Putnam on 11/21/24 13:17 UA Urobilinogen 3.5 mg/dL Last Edit by ELÍAS Putnam on 11/21/24 13:17 UA Protein 0 mg/dL Last Edit by ELÍAS Putnam on 11/21/24 13:17 UA pH 6.0 Last Edit by ELÍAS Putnam on 11/21/24 13:17 UA Blood 0 Jerman/uL Last Edit by ELÍAS Putnam on 11/21/24 13:17 UA Specific [place] 1.015 Last Edit by ELÍAS Putnam on 11/21/24 13:17 UA Ketone Negative Last Edit by ELÍAS Putnam on 11/21/24 13:17 UA Bilirubin 0 mg/dL Last Edit by ELÍAS Putnam on 11/21/24 13:17 UA Glucose 0 mg/dL Last Edit by ELÍAS Putnam on 11/21/24 13:17 Results Reviewed Results Reviewed: Laboratory Last Values Urine pH (Auto) 6.0 11/21/24 13:17 Specific [place] (Auto) 1.015 11/21/24 13:17 Urine Protein (Auto) 0 mg/dL 11/21/24 13:17 Glucose (UA)(Auto) 0 mg/dL 11/21/24 13:17 Urine Ketones (Auto) Negative 11/21/24 13:17 Urine Blood (Auto) 0 Jerman/uL 11/21/24 13:17 Urine Nitrite (Auto) Negative 11/21/24 13:17 Urine Bilirubin (Auto) 0 mg/dL 11/21/24 13:17 Urine Urobilinogen (Auto) 3.5 mg/dL 11/21/24 13:17 Leukocyte Esterase (Auto) 0 Goran/uL 11/21/24 13:17 Assessment & Plan Assessment & Plan (1) Renal stone: Code(s): N20.0 - Calculus of kidney Category: Medical (2) BPH loc w urin obs/LUTS: Code(s): N40.1 - Benign prostatic hyperplasia with lower urinary tract symptoms Category: Medical Plan 12 month follow-up PVR and PSA Orders: Orders AMB Urinalysis Automated Today Z13.9 - Encounter for screening, unspecified Prostate Specific Antigen 364 Days N40.1 - Benign prostatic hyperplasia with lower urinary tract symptoms Patient Instructions: This note is constructed using voice recognition software. While every effort has been made to ensure accuracy sales marketing manager errors may have been included. Imaging studies, laboratory and physical exam results were discussed and reviewed in detail. No major barriers to patient understanding were identified. An opportunity to ask questions regarding the treatment plan was provided. All questions were answered. The patient expressed understanding and agreement with the above treatment plan. The patient is aware they should contact our office by phone for worsening of their current condition or the appearance of new urologic symptoms. Compliance is encouraged with any medications and followup testing that is ordered. It is a privilege to participate in the urologic care of your patient. If you have any questions or concerns regarding treatment for the above conditions, or other urologic issues, please do not hesitate to contact me. The office telephone contact is [phone]. Sincerely, Dr Yobani Martin MD, [facility] - Urology Compassionate Specialist Care for the Genitourinary System Coding Level of Care Code Est Pt Level 3 (71757) Complex EM visit Add On G2211 Diagnoses Renal stone N20.0 BPH loc w urin obs/LUTS N40.1 CPT Codes Post Residual Void - PVR CPT Code: 33346-Rkxt Void Residual by ultrasound ([id number])
--- OUTSIDE RECORDS SUMMARY | 2024-11-21 13:06 | XMS_ITS | Clinical Summary ---
Author Organization [facility] Facility Address [address] [address] Care Team Providers Care Fashion Marketer Name Role Phone Mel Lane MD Primary Care Provider [phone] Allergies Active Allergy Reactions Criticality Noted Date [...] [place] Care Teams Fashion Marketer Relationship Specialty Start Date End Date Mel Lane MD [address] [place] [address] PCP - General 10/13/20
== END 2024-11-21 13:38 | disposition home or self-care (01) ==
PROVIDERS: PCP Internal Medicine; Visit Provider Urology
DX: N20.0 Calculus of kidney (principal); N40.1 Benign prostatic hyperplasia with lower urinary tract symptoms; Z13.9 Encounter for screening, unspecified
CPT/HCPCS: 99213; G2211

== ENCOUNTER → 2024-11-21 12:56 | Outpatient (BNVA) | payer MEDICARE, MEDICAID, SELFPAY | PROVIDERS: PCP Internal Medicine; Visit Provider Urology | DX: N40.1 Benign prostatic hyperplasia with lower urinary tract symptoms (principal); N20.0 Calculus of kidney | CPT/HCPCS: 51798; 81003; 99212 ==

== ENCOUNTER 2025-01-03 07:28 | Outpatient (AMB) | payer MEDICARE, MEDICAID, SELFPAY ==
--- OUTSIDE RECORDS SUMMARY | 2025-01-03 07:31 | XMS_ITS | Clinical Summary ---
Author Organization [facility] Facility Address [address] [address] Care Team Providers Care Quill Machine Operator Name Role Phone Mel Lane MD Primary Care Provider [phone] Allergies Active Allergy Reactions Criticality Noted Date [...] [place] Care Teams Quill Machine Operator Relationship Specialty Start Date End Date Mel Lane MD [address] [place] [address] PCP - General 10/13/20
[2025-01-03 07:46] VITALS: BP 124/80; BMI 27.5
--- NOTE | 2025-01-03 07:46 | A.OFFPC_ITS ---
Vital Signs 01/03/25 07:46 Height 5 ft 10 in Weight 192 lb BMI 27.5 BP 124/80 Blood Pressure Location Lt brachial Position Sitting Intake Visit Reasons: bp Intake Note: Patient here for a follow up BP Audit Reviewer Required: No Accompanied by: Self / Same As Patient Allergies Tetanus Vaccines and Toxoid [TETANUS VACCINES & TOXOID] Allergy (Severe, Verified 01/03/25 08:08) SWELLING rosuvastatin [From Crestor] Adverse Reaction (Severe, Verified 01/03/25 08:08) visual disturbance atorvastatin Adverse Reaction (Intermediate, Verified 01/03/25 08:08) body aches Medication List - Last Reconciled 01/03/25 by Mel Harris MD aspirin 81 mg PO DAILY doxazosin 8 mg PO BEDTIME 90 days evolocumab (Repatha SureClick) 140 mg subcut Q2W lisinopril 10 mg PO DAILY verapamil ER 240 mg PO DAILY Tobacco use date assessed: 01/03/25 Fall risk assessment: No Falls in past year Last assessed Fall Risk: 01/03/25 Dental Screening Dental Screen Date: 01/03/25 Did you have a dental visit in the last 12 months?: Yes Did you have a dental problem in the last 6 months where you did not have access to dental care?: No Was dental information given to patient?: Patient has dentist HPI HPI Comments History of Present Illness Details The patient is a 69-year-old male presenting for follow-up concerning his hypertension and cholesterol management. He has been managing essential hypertension with doxazosin and lisinopril, besides following tachycardic prophylaxis with aspirin, prescribed by his building code inspector. His history of hyperlipidemia was being treated with medication, though some new injectable cholesterol therapy has not been initiated after reported adverse events with previous statin use. Chronic kidney disease is maintained with a recent GFR of 48, and he reports persistent polyuria and occasional nocturia. His glycemic control review indicates potential hyperglycemia postprandially when sugar in gestion occurs. [facility] Medical History (Updated 01/03/25 @ 08:26 by Mel Harris MD) Left knee pain CKD (chronic kidney disease) stage 3, GFR 30-59 ml/min Essential hypertension Ascending aorta dilatation Renal cyst Renal stone Anxiety Other chronic pain Right anterior knee pain Left anterior knee pain Meatal stenosis Hypospadias, unspecified Elevated blood pressure reading BPH loc w urin obs/LUTS Surgical History Anal fistula History of inguinal hernia repair Family History Father No problems noted. Mother Stroke Maternal Grandmother Diabetes Brother Pancreatic cancer Maternal Grandmother Lung cancer Maternal Grandfather Lung cancer Social History Housing: Apartment Alcohol intake: current Alcohol intake frequency: a few times a month Alcohol type: beer Patient Tobacco Use Status: Never used Tobacco e-Cigarette/Vaping Use: Never Used Second Hand Smoke Exposure: No service: No Current occupational status: disabled Current occupation: right hand dominant Cognitive needs: No Hearing needs: No Vision needs: No Questionnaire PHQ-9 Over the last 2 weeks, how often have you been bothered by any of the following problems? 1. Little interest or pleasure in doing things: not at all 2. Feeling down, depressed, or hopeless: not at all 3. Trouble falling or staying asleep, or sleeping too much: not at all 4. Feeling tired or having little energy: not at all 5. Poor appetite or overeating: not at all 6. Feeling bad about yourself - or that you are a failure or have let yourself or your family down: not at all 7. Trouble concentrating on things, such as reading the newspaper or watching television: not at all 8. Moving or speaking so slowly that other people could have noticed. Or the opposite - being so fidgety or restless that you have been moving around a lot more than usual: not at all 9. Thoughts that you would be better off or of hurting yourself in some way: not at all Total score: 0 Depression Screening Interpretation: Negative Depression Screening Done: Yes 35572 - PHQ-9 Billing: Yes Source: Developed by Drs. Juarez Rosales, Suzie Saldivar, Lamont Livingston and colleagues, with an educational zehra from [employer]. Thrive Questionnaire Date Thrive assessed: 01/03/25 I am a: Patient What is your living situation today?: I have a steady place to live Within the past 12 months, did the food you bought not last and you didn't have the money to get more?: Often true Within the past 12 months, did you worry whether your food would run out before you got money to buy more?: Often true Do you have trouble paying for medicines?: No Do you have trouble getting transportation to medical appointments?: No Do you have trouble paying your heating and electricity bill?: No Do you have trouble taking care of your child, family member or friend?: No Do you have trouble with day-to-day activities such as bathing, preparing meals, shopping, managing finances, etc.?: No Are you currently unemployed and looking for a job?: No Are you interested in more education?: No Please select the resources that you would like help with: None Currently or been in a relationship where the following occur: No concerns reported THRIVE Score: 2 AUDIT C Alcohol Use Questionnaire (AUDIT-C) 1. How often do you have a drink containing alcohol?: Monthly or less 2. How many drinks containing alcohol do you have on a typical day when you are drinking?: 1 or 2 3. How often do you have six or more drinks on one occasion?: Never Total Score: 1 Score Reviewed/Action Taken: No TRI-7 AMB Questionnaire TRI-7 Date TRI - 7 assessed: 01/03/25 Feeling nervous, anxious, or on edge: 0 = Not at all Not being able to stop or control worryin = Not at all Worrying too much about different things: 0 = Not at all Trouble relaxin = Not at all Being so restless that it is hard to sit still: 0 = Not at all Becoming easily annoyed or irritable: 0 = Not at all Feeling afraid as if something awful might happen: 0 = Not at all Total TRI-7 score (0-4 normal; 5-9 mild; 10-14 moderate; 15-21 severe): 0 Source: Developed by Drs. Juarez Rosales, Suzie Saldivar, Lamont Livingston and colleagues, with an educational zehra from [employer]. TRI-7 Assessment Billing TRI-7 Assessment Tool: TRI-7 Assessment 82463 Review of Systems Const All systems reviewed & are unremarkable except as noted in HPI and below Card Denies chest pain at rest, Denies chest pain with activity, Denies edema, Denies irregular heart rhythm, Denies claudication, Denies dyspnea, Denies dyspnea on exertion, Denies orthopnea, Denies paroxysmal nocturnal dyspnea and Denies slow heart rate Resp Denies cough, Denies dyspnea and Denies dyspnea on exertion Musc Denies atrophy, Denies deformity and Denies limited range of motion Skin/Breast Denies bleeding lesions, Denies changing lesions and Denies rash Physical exam (Primary Care) Vital Signs: Last Vital Signs BP 124/80 01/03/25 07:46 BMI result Body Mass Index 35.1 Tobacco/Smoking Status: Tobacco use Status Tobacco use date assessed 01/03/25 01/03/25 07:57 Patient Tobacco Use Status Never used Tobacco 01/03/25 07:49 e-Cigarette/Vaping Use Never Used 01/03/25 07:49 PHQ-9: PHQ-9 Score PHQ-9: Total score 0 01/03/25 07:57 Depression Screening Interpretation: Negative Thrive Assessment: Date of Thrive Assessment Date Thrive assessed 01/03/25 01/03/25 07:49 Currently or been in a relationship where the following occur: No concerns reported Resp Effort & Inspection: normal respiratory effort Auscultation: clear to auscultation bilaterally Cardio Jugular venous distension: no JVD Rate: regular rate Rhythm: regular rhythm Heart sounds: S1 normal heart sound present and S2 normal heart sound present Extrem General: Yes full ROM Coding Level of Care Code Est Pt Level 4 (32689) Complex EM visit Add On G2211 Diagnoses Impaired glucose tolerance R73.02 Stage 3b chronic kidney disease N18.32 Chronic kidney disease stage 3 subtype: stage 3b (GFR 30-44) Essential hypertension I10 Dyslipidemia E78.5 Additional Codes PHQ-9 - 04176 - PHQ-9 Billing: Yes ([id number]) TRI-7 Assessment Billing - TRI-7 Assessment Tool: TRI-7 Assessment [id number] ([id number]) Time Spent (min) 23 Assessment & Plan Assessment & Plan (1) Impaired glucose tolerance: Code(s): R73.02 - Impaired glucose tolerance (oral) Category: Medical (2) CKD (chronic kidney disease) stage 3, GFR 30-59 ml/min: Code(s): N18.30 - Chronic kidney disease, stage 3 unspecified Category: Medical Qualifiers: Chronic kidney disease stage 3 subtype: stage 3b (GFR 30-44) Qualified Code(s): N18.32 - Chronic kidney disease, stage 3b (3) Essential hypertension: Code(s): I10 - Essential (primary) hypertension Category: Medical (4) Dyslipidemia: Code(s): E78.5 - Hyperlipidemia, unspecified Category: Medical Plan We shall maintain the current medications including doxazosin and lisinopril for blood pressure control. The injectable cholesterol medication should be started, recognizing observed statin intolerances and ensuring reduced cardiovascular risk. Frequent monitoring of glucose and kidney function will occur, with labs planned in five months. The patient was educated on medication adherence and importance of monitoring any recurrence of hyperglycemic episodes. Patient was informed and verbally consented to the use of an ambient scribe for clinic note documentation during this visit. I discussed with the patient the necessity to commence the new cholesterol injectable every two weeks due to his cardiovascular risk factors and previous intolerances to oral statins. I emphasized the benefits in terms of possible cardiovascular event risk reduction and the contrasting lower risk of similar adverse reactions. The importance of regular lab follow-ups was also emphasized to monitor renal function and glucose levels. Patients were advised that lab documents are not needed anymore for follow-ups, simplifying the procedure for subsequent visits. Orders: Orders Comprehensive [place]. Panel Fast 5 Months R73.02 - Impaired glucose tolerance (oral) Lipid Panel 5 Months E78.5 - Hyperlipidemia, unspecified Medications: New furosemide 20 mg PO DAILY 90 days 90 tabs 1RF Patient Instructions: - Continue current medications for hypertension and hyperlipidemia. - Begin cholesterol injections every two weeks as discussed. - Monitor blood sugar, particularly after consuming sweets. - Follow up with lab tests in five months directly at the laboratory. - Maintain proper hydration to assist kidney function. - Observe and report any new or worsening symptoms sooner.
== END 2025-01-03 08:17 | disposition home or self-care (01) ==
LOC: HO.HMCH 07:29
PROVIDERS: PCP Internal Medicine; Visit Provider Internal Medicine
DX: R73.02 Impaired glucose tolerance (oral) (principal); N18.32 Chronic kidney disease, stage 3b; I10 Essential (primary) hypertension; E78.5 Hyperlipidemia, unspecified

== ENCOUNTER → 2025-01-03 07:28 | Outpatient (BNVA) | payer MEDICARE, MEDICAID, SELFPAY | PROVIDERS: PCP Internal Medicine; Visit Provider Internal Medicine | DX: R73.02 Impaired glucose tolerance (oral) (principal); I12.9 Hypertensive chronic kidney disease with stage 1 through stage 4 chronic kidney disease, or unspecified chronic kidney disease; N18.32 Chronic kidney disease, stage 3b; E78.5 Hyperlipidemia, unspecified | CPT/HCPCS: 96127; 99212 ==

== ENCOUNTER 2025-06-06 08:55 | Outpatient (REF) | payer MEDICARE, MEDICAID, SELFPAY ==
--- OUTSIDE RECORDS SUMMARY | 2025-06-06 09:27 | XMS_ITS | Clinical Summary ---
Author Organization [facility] Facility Address [address] [address] Care Team Providers Care Senior Linux Systems Engineer Name Role Phone Mel Lane MD Primary Care Provider [phone] Allergies Active Allergy Reactions Criticality Noted Date [...] Due Date Last Done Comments Pneumococcal Vaccine: 50+ Ye ars (1 of 2 - PCV) 1973 Colorectal Cancer Screening: Annual FOBT 12/25/2003 Colorectal Cancer Screening: Colonoscopy 12/25/2003 Colorectal Cancer Screening: Sigmoidoscopy 12/25/2003 Influenza Vaccine (#1) 2025 Hepatitis B Vaccine Aged Out No longe r eligible based on patient's age to complete this topic Insurance Medicare Medicaid [place] Medicare Medicaid [place] Care Teams Senior Linux Systems Engineer Relationship Specialty Start Date End Date Mel Lane MD [address] [place] [address] PCP - General 10/13/20
[2025-06-06 11:14] LABS: Alanine Aminotransferase 25 U/L (0-40); Albumin Level 4.5 g/dL (3.5-5.0); Alkaline Phosphatase 87 U/L (39-117); Anion Gap 12 (12-20); Aspartate Amino Transferase 26 U/L (5-37); Blood Urea Nitrogen 22 mg/dL (9-16); Calcium 9.3 mg/dL (8.4-10.2); Carbon Dioxide 27 mmol/L (22-29); Chloride 106 mmol/L (96-108); Cholesterol 173 mg/dL (<200); Estimated Glomerular Filt Rate 56; HDL Cholesterol 38 mg/dL (>40); Potassium 4.6 mmol/L (3.3-5.1); Sodium 140 mmol/L (135-145); Total Protein 7.8 g/dL (6.5-8.0); Triglycerides 71 mg/dL (<150)
== END 2025-06-06 08:56 | disposition home or self-care (01) ==
LOC: HO.LAB 08:55
PROVIDERS: Visit Provider Internal Medicine
DX: R73.02 Impaired glucose tolerance (oral) (principal); E78.5 Hyperlipidemia, unspecified
CPT/HCPCS: 36415; 80053; 80061

== ENCOUNTER 2025-06-10 08:28 | Outpatient (AMB) | payer MEDICARE, MEDICAID, SELFPAY ==
--- NOTE | 2025-06-10 08:33 | A.OFFPC_ITS ---
Vital Signs 06/10/25 08:35 Height 5 ft 10 in Weight 185 lb 8 oz BMI 26.6 BP 110/68 Blood Pressure Location Lt brachial Position Sitting Pulse 83 Pulse Source Pulse Oximeter Temp 97.3 F Temp Source Temporal Artery Scan Pulse Oximetry (%) 95 Oxygen Delivery Method Room Air Intake Visit Reasons: BP Intake Note: Patient is here to follow up on BP. Dry Wall Finisher Required: Yes Dry Wall Finisher Language: Forest Nursery Supervisor Name: Rola (daughter) Information Interpreted: non-clinical & clinical (pt decline steel fabricating supervisor service prefer daughter to translate) Needle Polisher: Present Accompanied by: Daughter Allergies Tetanus Vaccines and Toxoid (TETANUS VACCINES & TOXOID) Allergy (Severe, Verified 06/10/25 08:56) SWELLING rosuvastatin (From Crestor) Adverse Reaction (Severe, Verified 06/10/25 08:56) visual disturbance atorvastatin Adverse Reaction (Intermediate, Verified 06/10/25 08:56) body aches Medication List - Last Reconciled 06/10/25 by Mel Harris MD aspirin 81 mg PO DAILY doxazosin 8 mg PO BEDTIME 90 days evolocumab (Repatha SureClick) 140 mg subcut Q2W furosemide 20 mg PO DAILY 90 days lisinopril 10 mg PO DAILY verapamil ER 240 mg PO DAILY Tobacco use date assessed: 06/10/25 Fall risk assessment: No Falls in past year Last assessed Fall Risk: 06/10/25 Dental Screening Dental Screen Date: 01/03/25 HPI HPI Comments History of Present Illness Details The patient is a 69-year-old male presenting with a follow-up for his chronic conditions, including hypertension and pure hypercholesterolemia. His hypertension is well-controlled with a blood pressure of 110/68 mmHg, meeting the target of less than 130/80 mmHg. His hypercholesterolemia is managed with medications, and his cholesterol level is stable at 173 mg/dL, similar to previous readings. The patient also has chronic kidney disease, which has shown improvement with an increase in GFR from 48 to 56, although it remains below the normal threshold of 60. He experiences visual disturbances due to an allergy to the tetanus vaccine and muscle pain from atorvastatin, which has been discontinued. Additionally, the patient has a history of ascending aorta dilatation, which is being monitored without current intervention from a vascular surgeon or release of information specialist. He underwent a Cologuard test in 2022, with the next screening scheduled for 2025. [facility] Medical History Left knee pain CKD (chronic kidney disease) stage 3, GFR 30-59 ml/min Essential hypertension Ascending aorta dilatation Renal cyst Renal stone Anxiety Other chronic pain Right anterior knee pain Left anterior knee pain Meatal stenosis Hypospadias, unspecified Elevated blood pressure reading BPH loc w urin obs/LUTS Surgical History Anal fistula History of inguinal hernia repair Family History Father No problems noted. Mother Stroke Maternal Grandmother Diabetes Brother Pancreatic cancer Maternal Grandmother Lung cancer Maternal Grandfather Lung cancer Social History Housing: Apartment Alcohol intake: current Alcohol intake frequency: a few times a month Alcohol type: beer Patient Tobacco Use Status: Never used Tobacco e-Cigarette/Vaping Use: Never Used Second Hand Smoke Exposure: No service: No Current occupational status: disabled Current occupation: right hand dominant Cognitive needs: No Hearing needs: No Vision needs: No Questionnaire Thrive Questionnaire Date Thrive assessed: 01/03/25 TRI-7 AMB Questionnaire TRI-7 Date TRI - 7 assessed: 01/03/25 Source: Developed by Drs. Juarez Rosales, Suzie Saldivar, Lamont Livingston and colleagues, with an educational zehra from [employer]. Review of Systems Const All systems reviewed & are unremarkable except as noted in HPI and below Card Denies chest pain at rest, Denies chest pain with activity, Denies edema, Denies irregular heart rhythm, Denies claudication, Denies dyspnea, Denies dyspnea on exertion, Denies orthopnea, Denies paroxysmal nocturnal dyspnea and Denies slow heart rate Resp Denies cough, Denies dyspnea and Denies dyspnea on exertion GI Denies abdominal pain, Denies change in bowel habits, Denies excessive flatus, Denies nausea and Denies vomiting Physical exam (Primary Care) Vital Signs: Last Vital Signs Temp 97.3 F 06/10/25 08:35 Pulse 83 06/10/25 08:35 BP 110/68 06/10/25 08:35 Pulse Ox 95 06/10/25 08:35 Oxygen Delivery Method Room Air 06/10/25 08:35 BMI result Body Mass Index 26.6 Tobacco/Smoking Status: Tobacco use Status Tobacco use date assessed 06/10/25 06/10/25 08:40 Patient Tobacco Use Status Never used Tobacco 06/10/25 08:34 e-Cigarette/Vaping Use Never Used 06/10/25 08:34 Thrive Assessment: Date of Thrive Assessment Date Thrive assessed 01/03/25 06/10/25 08:34 Resp Effort & Inspection: normal respiratory effort Auscultation: clear to auscultation bilaterally Cardio Jugular venous distension: no JVD Rate: regular rate Rhythm: regular rhythm Heart sounds: S1 normal heart sound present and S2 normal heart sound present Extrem General: Yes full ROM Coding Level of Care Code Est Pt Level 4 (58455) Complex EM visit Add On G2211 Diagnoses Essential hypertension I10 Ascending aorta dilatation I77.810 Dyslipidemia E78.5 Stage 3b chronic kidney disease N18.32 Chronic kidney disease stage 3 subtype: stage 3b (GFR 30-44) Time Spent (min) 22 Assessment & Plan Assessment & Plan (1) Essential hypertension: Code(s): I10 - Essential (primary) hypertension Category: Medical (2) Ascending aorta dilatation: Code(s): I77.810 - Thoracic aortic ectasia Category: Medical (3) Dyslipidemia: Code(s): E78.5 - Hyperlipidemia, unspecified Category: Medical (4) CKD (chronic kidney disease) stage 3, GFR 30-59 ml/min: Code(s): N18.30 - Chronic kidney disease, stage 3 unspecified Category: Medical Qualifiers: Chronic kidney disease stage 3 subtype: stage 3b (GFR 30-44) Qualified Code(s): N18.32 - Chronic kidney disease, stage 3b Plan Plan Patient was informed and verbally consented to the use of an ambient scribe for clinic note documentation during this visit. 1. Essential (primary) hypertension I10 The patient's hypertension is well-controlled with a blood pressure of 110/68 mmHg, which is within the target range of less than 130/80 mmHg. 2. Pure hypercholesterolemia, unspecified E78.00 The patient's cholesterol level is stable at 173 mg/dL, similar to previous readings, indicating effective management of hypercholesterolemia. 3. Chronic kidney disease, stage 3a N18.31 HCC 138 The patient's chronic kidney disease has shown improvement with an increase in GFR from 48 to 56, although it remains below the normal threshold of 60. 4. Thoracic aortic ectasia I77.810 HCC 108 The patient's ascending aorta dilatation is being monitored without current intervention from a vascular surgeon or release of information specialist. Orders: Orders Lipid Panel Today E78.5 - Hyperlipidemia, unspecified Comprehensive [place]. Panel Fast Today I10 - Essential (primary) hypertension Medications: Refilled furosemide 20 mg PO DAILY 90 tabs 1RF 90 days
[2025-06-10 08:35] VITALS: BP 110/68; PULSE 83; TEMP 36.3; O2SAT 95; BMI 26.6
--- OUTSIDE RECORDS SUMMARY | 2025-06-10 09:25 | XMS_ITS | Clinical Summary ---
Author Organization [facility] Facility Address [address] [address] Care Team Providers Care Compressed Gas Tester Name Role Phone Mel Lane MD Primary Care Provider [phone] Allergies Active Allergy Reactions Criticality Noted Date [...] Medicaid [place] Care Teams Compressed Gas Tester Relationship Specialty Start Date End Date Mel Lane MD [address] [place] [address] PCP - General 10/13/20
== END 2025-06-10 09:06 | disposition home or self-care (01) ==
PROVIDERS: PCP Internal Medicine; Visit Provider Internal Medicine
DX: I10 Essential (primary) hypertension (principal); I77.810 Thoracic aortic ectasia; E78.5 Hyperlipidemia, unspecified; N18.32 Chronic kidney disease, stage 3b

== ENCOUNTER → 2025-06-10 08:28 | Outpatient (BNVA) | payer MEDICARE, MEDICAID, SELFPAY | PROVIDERS: PCP Internal Medicine; Visit Provider Internal Medicine | DX: I77.810 Thoracic aortic ectasia (principal); E78.5 Hyperlipidemia, unspecified; I12.9 Hypertensive chronic kidney disease with stage 1 through stage 4 chronic kidney disease, or unspecified chronic kidney disease; N18.32 Chronic kidney disease, stage 3b | CPT/HCPCS: 99212 ==

== ENCOUNTER 2025-09-02 09:27 | Outpatient (REF) | payer MEDICARE, MEDICAID, SELFPAY ==
[2025-09-02 11:42] LABS: Alanine Aminotransferase 24 U/L (0-40); Albumin Level 4.4 g/dL (3.5-5.0); Alkaline Phosphatase 84 U/L (39-117); Anion Gap 9 (12-20); Aspartate Amino Transferase 21 U/L (5-37); Blood Urea Nitrogen 33 mg/dL (9-16); Calcium 9.6 mg/dL (8.4-10.2); Carbon Dioxide 28 mmol/L (22-29); Chloride 109 mmol/L (96-108); Cholesterol 181 mg/dL (<200); Estimated Glomerular Filt Rate 48; HDL Cholesterol 35 mg/dL (>40); Potassium 4.6 mmol/L (3.3-5.1); Sodium 141 mmol/L (135-145); Total Protein 7.6 g/dL (6.5-8.0); Triglycerides 79 mg/dL (<150)
== END 2025-09-02 09:28 | disposition home or self-care (01) ==
LOC: HO.LAB 09:27
PROVIDERS: PCP Internal Medicine; Visit Provider Internal Medicine
DX: E78.5 Hyperlipidemia, unspecified (principal); R73.02 Impaired glucose tolerance (oral)
CPT/HCPCS: 36415; 80053; 80061

== ENCOUNTER 2025-09-05 08:35 | Outpatient (AMB) | payer MEDICARE, MEDICAID, SELFPAY ==
--- NOTE | 2025-09-05 08:36 | AM.OFFVISMDC ---
Intake Vital Signs 09/05/25 08:34 09/05/25 08:42 Height 5 ft 10 in 5 ft 10 in Weight 189 lb 6 oz BMI 27.2 BP 100/60 Blood Pressure Location Lt brachial Position Sitting Pulse 89 Pulse Source Pulse Oximeter Temp 97.1 F Temp Source Oral Pulse Oximetry (%) 99 Oxygen Delivery Method Room Air Intake Visit Reasons: Annual Exam Sausage Maker Required: No Accompanied by: Daughter Allergies Tetanus Vaccines and Toxoid (TETANUS VACCINES & TOXOID) Allergy (Severe, Verified 09/05/25 08:57) SWELLING rosuvastatin (From Crestor) Adverse Reaction (Severe, Verified 09/05/25 08:57) visual disturbance atorvastatin Adverse Reaction (Intermediate, Verified 09/05/25 08:57) body aches Medication List - Last Reconciled 09/05/25 by Mel Harris MD apixaban (Eliquis) 5 mg PO BID doxazosin 8 mg PO BEDTIME 90 days evolocumab (Repatha SureClick) 140 mg subcut Q2W furosemide 20 mg PO DAILY 90 days metoprolol tartrate 25 mg PO BID verapamil ER 240 mg PO DAILY HPI HPI Comments History of Present Illness Details The patient is a 69 year old male presenting for his Medicare annual wellness exam. He received his PCV20 vaccine last year and received his influenza vaccine today. His last Cologuard was in 2022 and the next is scheduled for 2025. He has a history of stage 3 chronic kidney disease with a current GFR of 48, which has decreased from 56 in June. He was previously followed by a sap solution manager consultant but was discharged from their care due to the stability of his condition. Regarding his cardiovascular history, the patient has hypertension which is well-controlled with a blood pressure at goal. He has a diagnosis of atrial fibrillation, which was identified in July when he was taken to the hospital. At that time, his lisinopril was discontinued and he was started on metoprolol; his aspirin was also stopped and replaced with Eliquis. He reports he often forgets his evening dose of metoprolol tartrate. For hyperlipidemia, his LDL is 131. He has a history of statin intolerance, reporting visual disturbances with Crestor and muscle pain with atorvastatin. He has not been taking the prescribed Repatha injection. The patient has an allergy to the tetanus vaccine. His past surgical history is significant for anal fistula and inguinal hernia repairs. His family history is notable for a mother who had a stroke; his father had no significant medical issues. He denies any history of smoking and reports drinking beer a couple of times per month. - PCV20 vaccine was administered last year. - Influenza vaccine was administered during today's visit. - Cologuard for colon cancer screening was completed in 2022, with the next one due in 2025. - Blood pressure is at goal. - Recent lab results show an LDL cholesterol of 131 mg/dL, total cholesterol of 181 mg/dL, and HDL of 35 mg/dL. - [place] score indicates a 16.8% risk of a cardiovascular event in the next 10 years, which is considered high risk. - Glucose level of 105 mg/dL is borderline for prediabetes. - Follow-up labs are recommended in 6 months. [facility] Medical History (Updated 09/05/25 @ 09:04 by Mel Harris MD) Left knee pain CKD (chronic kidney disease) stage 3, GFR 30-59 ml/min Essential hypertension Ascending aorta dilatation Renal cyst Renal stone Anxiety Other chronic pain Right anterior knee pain Left anterior knee pain Meatal stenosis Hypospadias, unspecified Elevated blood pressure reading BPH loc w urin obs/LUTS Surgical History (Updated 09/05/25 @ 09:06 by Mel Harris MD) History of bladder surgery Anal fistula History of inguinal hernia repair Family History Father No problems noted. Mother Stroke Maternal Grandmother Diabetes Brother Pancreatic cancer Maternal Grandmother Lung cancer Maternal Grandfather Lung cancer Social History Housing: Apartment Alcohol intake: current Alcohol intake frequency: a few times a month Alcohol type: beer Patient Tobacco Use Status: Never used Tobacco e-Cigarette/Vaping Use: Never Used Second Hand Smoke Exposure: No service: No Current occupational status: disabled Current occupation: right hand dominant Cognitive needs: No Hearing needs: No Vision needs: No Questionnaire Medicare Wellness Checkup What [age] What gender do you identify with?: male Mini Mental State Exam (MMSE) Orientation What is the (year) (season) (date) (day) (month)?: year, season, date, day and month Where are we (state) (county) (town or city) (hospital) (floor)?: state, county, town or city, hospital/clinic and floor Registration Name of 3 unrelated objects clearly and slowly, then ask patient to repeat all 3 of them. (1st repeat determines score. Make sure they can repeat all three): object 1, object 2 and object 3 Attention & Calculation (CHOOSE ONE) Spell WORLD backwards (DLROW): 5 letters Recall Ask patient to repeat the 3 items from question #3.: object 1, object 2 and object 3 Language Show patient a wristwatch & ask what it is. Repeat for pencil.: watch and pencil Ask the patient to repeat the phrase 'No ifs, ands, or buts' after you.: correct Ask the patient to 'take a piece of paper with their right hand' 'fold paper in half' 'place paper on floor': take paper in right hand, fold paper in half and place paper on floor Print the sentence 'CLOSE YOUR EYES' on a piece. If patient actually closes eyes then score.: followed written direction Give patient a blank piece of paper & ask to write a sentence. Score if it contains a noun & verb.: sentence contains subject and verb Ask patient to copy figure of intersecting pentagons exactly. Score if all 10 angles & 2 intersects are included.: all 10 angles present & 2 are intersected Score Score: 30 Activity of Daily Living Bathing - sponge bath, tub bath or shower: receives no assistance (gets in/out by self, if usual bathing means Dressing - getting clothes from closets & drawers, including inner/outer garments & fasteners.: gets clothes & gets completely dressed without help Toileting - going to the 'toilet room' for urine/bowel elimination & cleaning self/arranging clothes: goes to toilet room, cleans self, arranges clothes without help Transfer: moves in & out of bed and chair without help (may use support object) Continence: controls urination/bowel movements completely by self Feeding: feeds self without help Total Score: 0 Information obtained from: patient Using telephone: independent Traveling: independent Shopping: independent Preparing meals: independent Housework: independent Taking medicine: independent Managing money: independent PHQ-9 Over the last 2 weeks, how often have you been bothered by any of the following problems? 1. Little interest or pleasure in doing things: not at all 2. Feeling down, depressed, or hopeless: not at all 3. Trouble falling or staying asleep, or sleeping too much: not at all 4. Feeling tired or having little energy: not at all 5. Poor appetite or overeating: not at all 6. Feeling bad about yourself - or that you are a failure or have let yourself or your family down: not at all 7. Trouble concentrating on things, such as reading the newspaper or watching television: not at all 8. Moving or speaking so slowly that other people could have noticed. Or the opposite - being so fidgety or restless that you have been moving around a lot more than usual: not at all 9. Thoughts that you would be better off or of hurting yourself in some way: not at all Total score: 0 Depression Screening Interpretation: Negative Depression Screening Done: Yes 13695 - PHQ-9 Billing: Yes Source: Developed by Drs. Juarez Rosales, Suzie Saldivar, Lamont Livingston and colleagues, with an educational zehra from [employer]. Review of Systems Const All systems reviewed & are unremarkable except as noted in HPI and below Card Denies chest pain at rest, Denies chest pain with activity, Denies edema, Denies irregular heart rhythm, Denies claudication, Denies dyspnea, Denies dyspnea on exertion, Denies orthopnea, Denies paroxysmal nocturnal dyspnea and Denies slow heart rate Resp Denies cough, Denies dyspnea and Denies dyspnea on exertion GI Denies abdominal pain, Denies change in bowel habits, Denies excessive flatus, Denies nausea and Denies vomiting Physical Exam Vital Signs: Last Vital Signs Temp 97.1 F 09/05/25 08:42 Pulse 89 09/05/25 08:42 BP 100/60 09/05/25 08:42 Pulse Ox 99 09/05/25 08:42 Oxygen Delivery Method Room Air 09/05/25 08:42 BMI result Body Mass Index 27.2 Const Orientation/consciousness: patient oriented x3 Resp Effort & Inspection: normal respiratory effort Auscultation: clear to auscultation bilaterally Cardio Jugular venous distension: no JVD Rate: regular rate Rhythm: regular rhythm Heart sounds: S1 normal heart sound present and S2 normal heart sound present Neuro General: patient oriented x3 Cognition (Neuro): normal cognition Gait exam (Neuro): Normal gait present Romberg Test: Negative Extrem General: Yes full ROM Office Procedures Flu Questionnaire Does the patient have a severe egg allergy?: No Does the patient have severe life threatening allergies?: No Does the patient have a fever or illness today?: No Has the patient ever had Guillain-[place] Syndrome?: No Has the patient ever had any past reaction to a flu shot?: No Immunizations Fluarix [id number] (PF) 45 mcg (15 mcg x 3)/0.5 mL IM syringe Performing Provider: Mel Harris MD [facility] Administered by: Kimi Palencia CMA on 09/05/25 08:51 Dose Route Admin Location Dispensed Lot Number Expiration Date NDC Enterprise Software Developer 0.5 mL IM Left Deltoid 0.5 mL [id number] 04/01/26 04115-466-95 SCM-GL VIS Given Date VIS Provided VIS Publication Date 09/05/25 Single Vaccine 24 Eligibility Eligibility Date Funding Source Not [facility] Eligible 09/05/25 Private Assessment & Plan Assessment & Plan (1) Encounter for Medicare annual wellness exam: Code(s): Z00.00 - Encounter for general adult medical examination without abnormal findings (2) Paroxysmal atrial fibrillation: Code(s): I48.0 - Paroxysmal atrial fibrillation (3) CKD (chronic kidney disease) stage 3, GFR 30-59 ml/min: Code(s): N18.30 - Chronic kidney disease, stage 3 unspecified Qualifiers: Chronic kidney disease stage 3 subtype: stage 3b (GFR 30-44) Qualified Code(s): N18.32 - Chronic kidney disease, stage 3b Plan Plan 1. Medicare Annual Wellness Visit The patient is seen for his annual wellness exam. A cognitive and functional status assessment was completed with normal findings. His vaccinations are up-to-date, having received the flu shot today and the PCV20 vaccine last year. His Cologuard screening is up to date until 2025. Labs will be repeated in 6 months. 2. Hyperlipidemia The patient's LDL is elevated at 131 and he has a high 10-year cardiovascular risk of 16.8%. He has a history of intolerance to Crestor and atorvastatin. He has been non-adherent with Repatha injections prescribed by cardiology. A prescription for Repatha will be sent to his pharmacy. 3. Atrial Fibrillation The patient is managed on Eliquis for atrial fibrillation. He reports poor adherence to his twice-daily metoprolol tartrate, often missing the evening dose. To improve adherence, his medication will be changed to metoprolol succinate 25 mg extended-release once daily for heart rate control. 4. Chronic Kidney Disease, Stage 3 The patient has stage 3 chronic kidney disease with a GFR of 48, which shows a slight decline from a GFR of 56 in June. His condition is considered relatively stable, and he is not currently followed by a sap solution manager consultant. Renal function will be monitored with repeat labs in 6 months. Orders: Orders Influenza [id number] Immunization Today Z23 - Encounter for immunization Medications: New metoprolol succinate ER 25 mg PO DAILY 90 tabs 1RF 90 days apixaban (Eliquis) 5 mg PO BID 180 tabs 1RF 90 days Refilled evolocumab (Repatha SureClick) 140 mg subcut Q2W 2 mL 5RF Quality Reporting (2019) Depression/Bipolar (159/160/161/177) PHQ-9: Total score: 0 Coding Level of Care Code Medicare First (G0438) Est Pt Level 3 (50634) Diagnoses Encounter for Medicare annual wellness exam Z00.00 Paroxysmal atrial fibrillation I48.0 Stage 3b chronic kidney disease N18.32 Chronic kidney disease stage 3 subtype: stage 3b (GFR 30-44) CPT Codes Advance Care Planning - Advance Care Planning discussion: On file, no changes ([id number]) Additional Codes PHQ-9 - 19009 - PHQ-9 Billing: Yes ([id number]) Time Spent (min) 34 Advance Care Planning Advance Care Planning discussion: On file, no changes Date of discussion: 09/05/25 Who was present: patient, daughter and me Forms completed: Health Care Proxy
[2025-09-05 08:42] VITALS: BP 100/60; PULSE 89; TEMP 36.2; O2SAT 99; BMI 27.2
--- OUTSIDE RECORDS SUMMARY | 2025-09-05 09:22 | XMS_ITS | Clinical Summary ---
Author Organization [facility] Facility Address [address] [address] Care Team Providers Care Insulation Hoseman Name Role Phone Mel Lane MD Primary [...] [place] Care Teams Insulation Hoseman Relationship Specialty Start Date End Date Mel Lane MD [address] [place] [address] PCP - General 10/13/20
== END 2025-09-05 09:19 | disposition home or self-care (01) ==
LOC: HO.HMCH 08:36
PROVIDERS: PCP Internal Medicine; Visit Provider Internal Medicine
DX: Z00.00 Encounter for general adult medical examination without abnormal findings (principal); I48.0 Paroxysmal atrial fibrillation; N18.32 Chronic kidney disease, stage 3b; Z23 Encounter for immunization

== ENCOUNTER → 2025-09-05 08:35 | Outpatient (BNVA) | payer MEDICARE, MEDICAID, SELFPAY | PROVIDERS: PCP Internal Medicine; Visit Provider Internal Medicine | DX: Z00.00 Encounter for general adult medical examination without abnormal findings (principal); I48.0 Paroxysmal atrial fibrillation; E78.5 Hyperlipidemia, unspecified; N18.32 Chronic kidney disease, stage 3b; Z13.31 Encounter for screening for depression; Z23 Encounter for immunization; Z79.899 Other long term (current) drug therapy | CPT/HCPCS: 90471; 90656; 96127; 99212 ==